=== PATIENT | male | born 1960 | race Caucasian/White ===

== ENCOUNTER 2023-07-08 16:20 | Observation (INO) | payer OTHER, SELFPAY ==
[2023-07-08] VITALS (14 sets, daily range): BP systolic 125–176; BP diastolic 70–106; PULSE 86–102; RESP 14–23; TEMP 36.2–36.7; O2SAT 95–97; BMI 38.5
--- NOTE | 2023-07-08 16:53 | DI.RAD.S_ITS ---
PROCEDURE: XR CHEST 1V INDICATIONS: chest pain TECHNIQUE: One view of the chest was acquired. COMPARISON: None. FINDINGS: Surgical changes and devices: None. Lungs and pleura: Lungs are clear. No pleural effusions or pneumothorax. Mediastinum: Mediastinal contours appear normal. Heart size is normal. Bones and chest wall: No suspicious bony lesions. Overlying soft tissues appear unremarkable. IMPRESSION: No acute radiographic abnormality on this single view. Dictated by: Sravan Archibald M.D. on 07/08/2023 at 17:02 Approved by: Sravan Archibald M.D. on 07/08/2023 at 17:03
--- NOTE | 2023-07-08 16:54 | DI.CT.S_ITS ---
PROCEDURE: CT ANGIO HEAD AND NECK INDICATIONS: Please evaluate for stroke TECHNIQUE: After the administration of intravenous contrast, 1 mm thick sections acquired from the aortic arch through the [place]. 3-dimensional vrqsuvt-uzxgkccxv-skzcvskdvj (MIP) and/or volume rendering reformats were acquired of the central intracranial vasculature and neck separately. For radiation dose reduction, the following was used: automated exposure control, adjustment of mA and/or kV according to patient size. COMPARISON: [facility], CR, XR CHEST 1V, 07/08/2023, 16:49. [facility], CT, CT HEAD/BRAIN WO CON, 07/08/2023, 17:00. FINDINGS: Image quality: Diagnostic. BRAIN: CSF spaces: Ventricles are normal in size and shape. Basal cisterns are patent. No extra-axial fluid collections. Brain: As previously demonstrated, general low-density can be seen involving the right posterior cerebral hemisphere. Skull and face: Calvarium and facial bones appear intact, without suspicious lesions. Orbits appear normal. Sinuses: Mucous retention cysts can be seen within the left maxillary sinus. Sinuses and mastoids are otherwise clear. HEAD CT ANGIOGRAPHY: Anterior circulation: Intracranial internal carotid arteries are normal in size and flow. The flow within the paired anterior cerebral arteries is normal and symmetric. The flow within the middle cerebral arteries is normal and symmetric. The anterior communicating artery is seen. No aneurysms are seen. Posterior circulation: Visualized portions of the vertebral arteries demonstrate normal caliber, and join to form a normal appearing basilar artery. There is a prominent left posterior communicating artery seen, with an accompanying diminutive left P1 segment. This is attributed to a type origin of the right posterior cerebral artery, which is considered to be a normal developmental variant of typically no clinical consequence. The flow within the posterior cerebral arteries is normal and symmetric. No aneurysms are seen. NECK CT ANGIOGRAPHY: Carotid system: The great vessels demonstrate a conventional anatomy as they arise from the aortic arch. The origins of the common carotid arteries appear patent. The common carotid arteries demonstrate normal caliber and courses. The bifurcation regions are both widely patent. The internal carotid arteries demonstrate normal calibers and courses. Posterior circulation: The origins of the vertebral arteries both appear widely patent. The more superior extracranial portions of both vertebral arteries also demonstrate normal courses and calibers. The left vertebral artery is dominant to the right. Soft tissues: Visualized neck soft tissues demonstrate no suspicious abnormalities. Bones: No suspicious bony lesions. Visualized cervical spine appears normally aligned. Moderate cervical spine degenerative change can be seen. IMPRESSION: No significant intracranial arterial abnormality is seen. Within the arteries of the neck, no hemodynamically significant stenosis can be seen. If it would be helpful for clinical management decision making, please consider a follow-up brain MRI for further evaluation (assuming that there is no contraindication). Any quantitative measurements of stenosis were performed using NASCET criteria. Dictated by: Vlad Omer M.D. on 07/08/2023 at 16:34 Approved by: Vlad Omer M.D. on 07/08/2023 at 16:36
--- NOTE | 2023-07-08 16:54 | DI.CT.S_ITS ---
PROCEDURE: CT HEAD/BRAIN WO CON INDICATIONS: R/O stroke TECHNIQUE: Noncontrast 4.5 mm thick angled axial sections acquired from the foramen magnum to the vertex, with coronal and sagittal reformats. For radiation dose reduction, the following was used: automated exposure control, adjustment of mA and/or kV according to patient size. COMPARISON: None. FINDINGS: Image quality: Good CSF spaces: Basal cisterns are patent. Lateral ventricles are symmetric. Volume: Vascular calcifications. Periventricular white matter disease is commonly seen with chronic microangiopathy. Volume loss is present. These findings are [id number] Brain: Right parietal occipital hypoattenuation involving the white and [place]oz matter. No acute hemorrhage. Craniofacial structures: Left paranasal sinus mucous retention cysts. IMPRESSION: Suspected late acute to subacute infarct in the right parietal occipital region. Consider MRI to further evaluate. Dictated by: Sravan Archibald M.D. on 07/08/2023 at 17:13 Approved by: Sravan Archibald M.D. on 07/08/2023 at 17:15
[2023-07-08 17:08] LABS: Add Manual Diff / Slide Review NO; Basophils Absolute Auto 100 /uL (0-100); Basophils Percent Auto 0.4 % (0-2); Eosinophils Absolute Auto 200 /uL (0-450); Eosinophils Percent Auto 1.3 % (2-4); Hematocrit 46.1 % (41-53); Hemoglobin 15.8 g/dL (13.5-17.5); Lymphocytes Absolute Auto 2000 /uL (1100-4500); Lymphocytes Percent Auto 12.9 % (25-40); Mean Corpuscular HGB Conc 34.3 % (30-36); Mean Corpuscular Hemoglobin 29.2 PG (26-34); Mean Corpuscular Volume 85.2 fL (80-100); Monocytes Absolute Auto 1000 /uL (0-900); Monocytes Percent Auto 6.6 % (3-14); Neutrophils Absolute Auto 12500 /uL (1500-7000); Neutrophils Percent Auto 78.8 % (50-75); Platelet Count 264 X10^3/uL (150-400); Red Blood Cell Count 5.41 X10^6/uL (4.5-5.9); Red Cell Distribution Width 14.6 % (11.6-14.8); White Blood Cell Count 15.9 X10^3/uL (4.5-11.0)
[2023-07-08 17:16] LABS: Prothrombin Time 11.8 SECONDS (10.1-12.7)
[2023-07-08 17:18] LABS: PTT Partial Thromboplastin Tim 31 SECONDS (26-36)
[2023-07-08 17:24] LABS: Alanine Aminotransferase 30 IU/L (<50); Albumin 4.2 g/dL (3.5-5.0); Albumin Globulin Ratio 1.3 (1.0-2.8); Alkaline Phosphatase 55 U/L (38-126); Aspartate Aminotransferase 23 IU/L (17-59); BUN Creatinine Ratio 19.8 (6-22); Bilirubin Total 0.3 mg/dL (0.2-1.3); Blood Urea Nitrogen 18 mg/dL (9-20); Calcium 9.4 mg/dL (8.4-10.2); Carbon Dioxide 23 mmol/L (22-32); Chloride 105 mmol/L (98-107); Creatine Kinase 63 U/L (55-170); Estimated Glomerular Filt Rate > 60 mL/min (>60); Globulin 3.2 g/dL (1.7-4.1); Glucose 153 mg/dL (80-110); HEMOLYSIS 19 (0-50); Lipase 75 U/L (23-300); Magnesium 2.1 mg/dL (1.6-2.3); Sodium 138 mmol/L (137-145); Total Protein 7.4 g/dL (6.3-8.2)
[2023-07-08 17:35] LABS: Troponin I < 0.012 ng/mL (0.01-0.034)
--- NOTE | 2023-07-08 17:48 | DI.MRI.S_ITS ---
PROCEDURE: MR HEAD/BRAIN WO CON INDICATIONS: Intermittent extremities/face TECHNIQUE: Noncontrast axial T1 spin echo, axial T2 fast spin echo, sagittal and axial FLAIR, coronal T2 fast spin echo, axial gradient echo, axial diffusion and ADC through the brain. COMPARISON: [facility], CT, CT ANGIO HEAD AND NECK, 07/08/2023, 17:00. [facility], CT, CT HEAD/BRAIN WO CON, 07/08/2023, 17:00. FINDINGS: Image quality: Excellent. CSF Spaces: Basal cisterns are patent. No extra-axial fluid collections. Ventricles are normal in size and shape. Brain: There is a large region of cortical and subcortical restricted diffusion in the right posterior parietal, posterior temporal, and occipital lobes with corresponding T2 hyperintensity and cortical edema consistent with a subacute infarct. There are associated curvilinear areas of GRE susceptibility along the cortex within this region as well as associated T1 hyperintensity. The findings are consistent with hemorrhagic conversion and laminar necrosis. Multiple additional small punctate subcortical foci of restricted diffusion and T2 hyperintensity are demonstrated within the right frontal, parietal, and temporal lobes also consistent with small subacute infarcts. No discrete mass or hematoma collection. There are also scattered bilateral foci of periventricular and subcortical T2 hyperintensity consistent with mild chronic white matter small vessel ischemic changes. No intracranial masses or hemorrhage. [place]/white matter interface is normal. Brainstem appears normal. Diffusion-weighted images demonstrate no acute ischemic insult. No chronic ischemic insults. Normal intravascular flow voids are present. Skull and face: Calvarium has normal marrow signal. Orbits appear normal. Sinuses: There is mucosal thickening in the left maxillary sinus. Mastoid air cells are clear. IMPRESSION: 1. Large cortical and subcortical subacute infarct involving the right posterior parietal, posterior temporal, and occipital lobes with associated cortical hemorrhagic conversion and laminar necrosis. 2. Additional small punctate subacute infarcts in the right frontal, parietal, and temporal lobes. Given the distribution within the anterior and posterior circulation, the findings suggest sequelae of right-sided embolic phenomenon. Findings discussed with Dr. Courtney on 08/07/2023 at 9:10 p.m.. Dictated by: Vaibhav Sow M.D. on 07/08/2023 at 21:05 Approved by: Vaibhav Sow M.D. on 07/08/2023 at 21:14
--- NOTE | 2023-07-08 18:14 | ED_ITS ---
HPI - Neuro Symptoms/Deficit General Chief Complaint: Neuro Symptoms/Deficit Stated Complaint: sent by PCP possible Stroke Time Seen by Provider: 07/08/23 18:03 Source: patient Mode of arrival: Ambulatory History of Present Illness HPI Narrative: 63-year-old male with history of smoking, hypertension, diabetes presents at the request of his primary care provider for evaluation of neurologic symptoms and concern for stroke. He states that he has been having some vision issues in his left eye off and on for at least a few days as well as episodes of trouble with coordination of his left arm. Denies any trauma or injury. He has no headache, fever or chills. He does not take blood thinners. He denies chest pain, shortness of breath or cough. He has no nausea, vomiting or diarrhea. On Anticoagulants: No (ASA81) Review of Systems Review of Systems Narrative: GENERAL: Denies chills, fatigue, malaise, fever, sweats. HEENT: See HPI RESPIRATORY: Denies dyspnea, cough, wheezing, hemoptysis, sputum. CARDIOVASCULAR: Denies chest pain, palpitations, orthopnea, edema, GASTROINTESTINAL: Denies nausea, vomiting, abdominal pain, diarrhea, constipation, melena. : Denies dysuria, frequency, incontinence, hematuria, urinary retention. MUSCULOSKELETAL: denies weakness, joint pain, or bony pain SKIN: Denies rash, skin lesions, or other NEUROLOGIC: See HPI n. PSYCHIATRIC: No concerning psychosocial issues. 12 point review of systems is negative except for those stated above Hematologic/Lymphatic On Anticoagulants: No (ASA81) Patient History Social History Smoking Status: Current every day smoker Smoking Status: Current every day smoker tobacco type: cigarettes alcohol intake frequency: holidays/special occasions only Substance Use Type: marijuana Exam Narrative Exam Narrative: GENERAL: [63] year old patient appears stated age. Well-developed patient, in mild distress. HEAD: Atraumatic. Normocephalic. EYES: Pupils equal round and reactive. Extraocular motions intact. No scleral icterus. No injection or drainage. ENT: Nose without bleeding, purulent drainage. Throat without erythema, tonsilla r hypertrophy or exudate. Airway patent. NECK: Trachea midline. Non tender CARDIOVASCULAR: Regular rate and rhythm without murmurs, gallops, or rubs. RESPIRATORY: Clear to auscultation. Breath sounds equal bilaterally. No wheezes, rales, or rhonchi. GASTROINTESTINAL: Abdomen soft, non-tender, nondistended. EXTREMITIES: No edema or joint tenderness. BACK: Nontender without deformity or crepitance. No flank tenderness. NEURO: AOx3. Cranial nerves 2-12 grossly intact SKIN: No rash or erythema of visible areas Initial Vital Signs Initial Vital Signs: Vital Signs Temperature 98.1 F 07/08/23 16:26 Pulse Rate 102 H 07/08/23 16:26 Respiratory Rate 17 07/08/23 16:26 Blood Pressure 166/88 H 07/08/23 16:26 Pulse Oximetry 96 07/08/23 16:26 Oxygen Delivery Method Room Air 07/08/23 16:26 Scores NIH Stroke Scale Level of Conciousness: Alert, keenly responsive Ask month/age: Answers both questions correctly. Open/close eyes, close hand: Performs both tasks correctly Best gaze horizontal: Normal Visual tabor: No visual loss Facial palsy: Normal symetrical movement Left arm drift: No drift for full 10 sec Right arm drift: No drift for full 10 sec Left leg drift: No drift for full 5 sec Right leg drift: No drift for full 5 sec Limb ataxia: Present in one limb Sensory on face/arms/legs: Normal, no sensory loss Best language: No aphasia, normal Dysarthria: Normal Extinction or inattention: No abnormality Total NIH Stroke scale score: 1 Course Orders Ordered: ED Orders 07/08/23 16:52 Complete Blood Count AUTO DIFF Stat Comprehensive Metabolic Panel Stat Lipase Stat Magnesium Stat PTT Partial Thromboplastin [place] Stat Prothrombin Time INR Stat Troponin & CK Cardiac Panel Stat 07/08/23 16:53 XR chest 1V Stat EKG-12 Lead Stat 07/08/23 16:54 CT angio head and neck Stat CT head/brain wo con Stat 07/08/23 17:48 MR stroke Stat Discontinued Medications Aspirin (Aspirin 81 Mg Chew Tab) 324 mg PO NOW ONE Stop: 07/08/23 16:54 Last Admin: 07/08/23 18:34 Dose: Not Given Documented By: JADE Aspirin (Aspirin 81 Mg Chew Tab) 324 mg PO NOW ONE Stop: 07/08/23 18:31 Aspirin (Aspirin 81 Mg Chew Tab) 324 mg PO NOW ONE Stop: 07/08/23 19:27 Last Admin: 07/08/23 19:27 Dose: 324 mg Documented By: ISABELA Vital Signs Vital signs: Vital Signs - 8 hr 07/08/23 16:26 07/08/23 16:28 07/08/23 16:30 Temperature 98.1 F Pulse Rate 102 H 100 H Respiratory Rate 17 19 Blood Pressure 166/88 H 156/86 H Pulse Oximetry 96 96 Oxygen Delivery Method Room Air 07/08/23 16:30 07/08/23 17:00 07/08/23 17:00 Temperature Pulse Rate 100 H 100 H Respiratory Rate 19 23 Blood Pressure 150/106 H Pulse Oximetry 96 96 Oxygen Delivery Method 07/08/23 17:13 07/08/23 17:13 07/08/23 17:30 Temperature Pulse Rate 91 H 86 Respiratory Rate 16 20 Blood Pressure 155/86 H Pulse Oximetry 95 95 Oxygen Delivery Method 07/08/23 17:31 07/08/23 17:31 07/08/23 18:00 Temperature Pulse Rate 86 Respiratory Rate 19 Blood Pressure 153/72 H 166/88 H Pulse Oximetry 95 Oxygen Delivery Method 07/08/23 18:00 07/08/23 18:30 07/08/23 18:30 Temperature Pulse Rate 86 91 H Respiratory Rate 14 18 Blood Pressure 176/94 H Pulse Oximetry 96 96 Oxygen Delivery Method MDM - Neuro Symptoms/Deficit Lab Data 07/08/23 16:52 07/08/23 16:52 Labs: Lab Results 07/08/23 07/08/23 07/08/23 Range/Units 16:52 16:52 16:52 WBC 15.9 H (4.5-11.0) X10^3/uL RBC 5.41 (4.5-5.9) X10^6/uL Hgb 15.8 (13.5-17.5) g/dL Hct 46.1 (41-53) % MCV 85.2 (80-100) fL MCH 29.2 (26-34) PG MCHC 34.3 (30-36) % RDW 14.6 (11.6-14.8) % Plt Count 264 (150-400) X10^3/uL Neut % (Auto) 78.8 H (50-75) % Lymph % (Auto) 12.9 L (25-40) % [place] % (Auto) 6.6 (3-14) % Eos % (Auto) 1.3 L (2-4) % Baso % (Auto) 0.4 (0-2) % Neut # (Auto) 62451 H (2375-1311) /uL Lymph # (Auto) 2000 (7997-5386) /uL [place] # (Auto) 1000 H (0-900) /uL Eos # (Auto) 200 (0-450) /uL Baso # (Auto) 100 (0-100) /uL PT 11.8 (10.1-12.7) SECONDS INR 1.0 (0.9-1.3) APTT 31 (26-36) SECONDS Sodium 138 (137-145) mmol/L Potassium 4.0 (3.4-5.1) mmol/L Chloride 105 (98-107) mmol/L Carbon Dioxide 23 (22-32) mmol/L BUN 18 (9-20) mg/dL Creatinine 0.91 (0.66-1.25) mg/dL Estimated GFR > 60 (>60) mL/min BUN/Creatinine Ratio 19.8 (6-22) Glucose 153 H (80-110) mg/dL Calcium 9.4 (8.4-10.2) mg/dL Magnesium 2.1 (1.6-2.3) mg/dL Total Bilirubin 0.3 (0.2-1.3) mg/dL AST 23 (17-59) IU/L ALT 30 (<50) IU/L Alkaline Phosphatase 55 (38-126) U/L Total Creatine Kinase 63 (55-170) U/L Troponin I < 0.012 (0.01-0.034) ng/mL Total Protein 7.4 (6.3-8.2) g/dL Albumin 4.2 (3.5-5.0) g/dL Globulin 3.2 (1.7-4.1) g/dL Albumin/Globulin Ratio 1.3 (1.0-2.8) Lipase 75 (23-300) U/L MDM Narrative Medical decision making narrative: [63] year old patient presents with neurologic symptoms including occasional visual issues, some dizziness and left arm trouble, symptoms off and on for least 1 week Multiple etiologies for patient's symptoms considered including, but not limited to: [Stroke versus TIA versus other] Prior Charts reviewed in our EMR Primary Historian: patient Labs reviewed and interpreted by myself: Leukocytosis of 15.9 with relative left shift of unknown importance, no signs of anemia, electrolytes within normal limits Imaging reviewed: Noncontrasted CT of the head with a suspected late acute to subacute infarct in the right parietal occipital region, CTA without significant intracranial arterial abnormality Consultations: call to hospitalist (Marcelo), happy to accept Patient with stroke, last known normal at least a few days ago. NOT TPA candidate, no evidence of LVO. Requires hospitalization for completion of stroke work up including MRI, echo, maximizing meds, various consults as needed by hospitalist Discharge Plan Departure Patient Disposition: Admitted As Inpatient Clinical Impression: Cerebrovascular accident
--- NOTE | 2023-07-08 18:34 | PC.NURSE ---
ED Dr Canales gave Verbal orders, Dr Redd used in error, all order prior to [address] Antonio Canales
--- NOTE | 2023-07-08 19:21 | P.HP_ITS ---
History of Present Illness History of Present Illness Date Patient Seen: 07/08/23 Time Patient Seen: 19:21 Chief complaint: sent by PCP possible Stroke Narrative: The a 63-year-old male who presents with waxing and waning neurologic symptoms for several weeks. Included mental fuzziness, and intermittent clumsiness of his left hand. He has also had some visual changes including squiggly lines which his eye doctor thought might be ocular migraine. 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 He is very effective in successful at his job. Patient has a history of diabetes been working on weight loss. He also has hypertension and smokes cigarettes. Treated TIA or stroke. Yesterday he developed a very clumsy and numb arm which lasted for a short p eriod of time. This prompted a phone call and appointment with his primary care doctor. Upon presentation today they thought he had sent him to the ED. he was found on imaging to have a subacute right parietal stroke. He was outside of the window for acute thrombolytics. He denies recent headache. He takes aspirin 81 mg a day as well as amlodipine and losartan. [facility] Social History Smoking Status: Current every day smoker Review of Systems Review of Systems Narrative: All else reviewed and otherwise unremarkable except as noted on history and physical. Exam Vital Signs (past 8 hours): - 07/08/23 16:26 07/08/23 16:28 07/08/23 16:30 Temperature 98.1 F Pulse Rate 102 H 100 H Respiratory Rate 17 19 Blood Pressure 166/88 H 156/86 H Pulse Oximetry 96 96 Oxygen Delivery Method Room Air 07/08/23 16:30 07/08/23 17:00 07/08/23 17:00 Temperature Pulse Rate 100 H 100 H Respiratory Rate 19 23 Blood Pressure 150/106 H Pulse Oximetry 96 96 Oxygen Delivery Method 07/08/23 17:13 07/08/23 17:13 07/08/23 17:30 Temperature Pulse Rate 91 H 86 Respiratory Rate 16 20 Blood Pressure 155/86 H Pulse Oximetry 95 95 Oxygen Delivery Method 07/08/23 17:31 07/08/23 17:31 07/08/23 18:00 Temperature Pulse Rate 86 Respiratory Rate 19 Blood Pressure 153/72 H 166/88 H Pulse Oximetry 95 Oxygen Delivery Method 07/08/23 18:00 07/08/23 18:30 07/08/23 18:30 Temperature Pulse Rate 86 91 H Respiratory Rate 14 18 Blood Pressure 176/94 H Pulse Oximetry 96 96 Oxygen Delivery Method Oxygen Delivery Method Room Air Narrative Exam Narrative: The patient is awake and in NAD. Normal speech and mentation. Normal judgement, and calm affect. Head is atraumatic and EOMI. Anicteric sclera. Oropharynx is moist. Neck is supple and trachea is midline. Lungs are CTA, with normal rate and effort. Heart is RRR, without murmur, gallop, or rub. Abdomen is soft, NT and ND. Extremities are free of edema. Good arm pulses. Good leg pulses. Skin is free of rash or lesions. Joints are free of swelling or deformity. Back with normal ROM. Neurologically his cranial nerves are intact. He has no discernible facial droop. His speech appears to be normal and his thought content appears to be sharp. The patient's cranial nerves appear to be intact. He does have very mild weakness of dorsiflexion of his left foot but otherwise his motor strength is fairly symmetric in arms and legs on both sides. Objective ECG Impression: Normal sinus rhythm Imaging CT scan - head: Radiologist's impression: IMPRESSION:? No significant intracranial arterial abnormality is seen.? ? Within the arteries of the neck, no hemodynamically significant stenosis can be seen. ? If it would be helpful for clinical management decision making, please consider a follow-up brain MRI for further evaluation (assuming that there is no contraindication).? IMPRESSION:? Suspected late acute to subacute infarct in the right parietal occipital region.? Consider MRI to further evaluate.? Labs 07/08/23 16:52 07/08/23 16:52 Labs: Laboratory Results - last 24 hr 07/08/23 07/08/23 07/08/23 16:52 16:52 16:52 WBC 15.9 H RBC 5.41 Hgb 15.8 Hct 46.1 MCV 85.2 MCH 29.2 MCHC 34.3 RDW 14.6 Plt Count 264 Neut % (Auto) 78.8 H Lymph % (Auto) 12.[address] [place] % (Auto) 6.6 Eos % (Auto) 1.3 L Baso % (Auto) 0.4 Neut # (Auto) 39503 H Lymph # (Auto) 2000 [place] # (Auto) 1000 H Eos # (Auto) 200 Baso # (Auto) 100 PT 11.8 INR 1.0 APTT 31 Sodium 138 Potassium 4.0 Chloride 105 Carbon Dioxide 23 BUN 18 Creatinine 0.91 Estimated GFR > 60 BUN/Creatinine Ratio 19.8 Glucose 153 H Calcium 9.4 Magnesium 2.1 Total Bilirubin 0.3 AST 23 ALT 30 Alkaline Phosphatase 55 Total Creatine Kinase 63 Troponin I < 0.012 Total Protein 7.4 Albumin 4.2 Globulin 3.2 Albumin/Globulin Ratio 1.3 Lipase 75 Assessment & Plan Assessment & Plan narrative: 1. Subacute right parieto-occipital stroke, present on admission and active. 2. Insulin-dependent diabetes mellitus 2,present on admission and active. 3. Tobacco dependence,present on admission and active. 4. Obesity,present on admission and active. 5. Hypertension,present on admission and active. Plan: -monitor glucose with correctional lispro. -dual antiplatelet therapy with Plavix 75 daily and baby aspirin, add atorvastatin 40 -MRI brain -cardiac echo -PT and OT assessments Time Spent With Patient Time with patient: 30 to 49 minutes with 50% spent counseling/coordinating care
[2023-07-08] MEDS: ASPIRIN 81 MG CHEW TAB 324 MG PO (19:27)
[2023-07-08 20:06] LABS: Cholesterol 211 mg/dL (140-199); HDL Cholesterol 25 mg/dL (40-60); LDL Cholesterol Calculated 111 mg/dL (<100); Triglycerides 373 mg/dL (35-150)
--- NOTE | 2023-07-08 22:02 | ED.NEUROSD ---
HPI - Neuro Symptoms/Deficit General Chief Complaint: Neuro Symptoms/Deficit Stated Complaint: sent by PCP possible Stroke Time Seen by Provider: 07/08/23 18:03 Source: patient Mode of arrival: Ambulatory History of Present Illness On Anticoagulants: No (ASA81) Related Data Home Medications Medication Instructions Recorded Confirmed amlodipine 10 mg tablet 10 mg PO DAILY 07/08/23 07/08/23 testosterone cypionate 200 mg/mL 200 mg IM Q2W 07/08/23 07/08/23 intramuscular oil valsartan 160 mg tablet 160 mg PO DAILY 07/08/23 07/08/23 Review of Systems Hematologic/Lymphatic On Anticoagulants: No (ASA81) Patient History Social History Smoking Status: Current every day smoker Smoking Status: Current every day smoker tobacco type: cigarettes alcohol intake frequency: holidays/special occasions only Substance Use Type: marijuana Exam Initial Vital Signs Initial Vital Signs: Vital Signs Temperature 98.1 F 07/08/23 16:26 Pulse Rate 102 H 07/08/23 16:26 Respiratory Rate 17 07/08/23 16:26 Blood Pressure 166/88 H 07/08/23 16:26 Pulse Oximetry 96 07/08/23 16:26 Oxygen Delivery Method Room Air 07/08/23 16:26 Course Orders Ordered: ED Orders 07/08/23 16:52 Complete Blood Count AUTO DIFF Stat Comprehensive Metabolic Panel Stat Lipase Stat Lipid Panel Routine Magnesium Stat PTT Partial Thromboplastin [place] Stat Prothrombin Time INR Stat Troponin & CK Cardiac Panel Stat 07/08/23 16:53 XR chest 1V Stat EKG-12 Lead Stat 07/08/23 16:54 CT angio head and neck Stat CT head/brain wo con Stat 07/08/23 17:48 MR head/brain wo con Stat 07/08/23 19:30 Education, smoking cessation ONGOING 07/09/23 06:00 Basic Metabolic Panel DAILY NT-proBNP (BNP-Adult 18+) DAILY 07/10/23 06:00 Basic Metabolic Panel DAILY NT-proBNP (BNP-Adult 18+) DAILY Acetaminophen (Acetaminophen 325 Mg Tablet) 650 mg PO Q6H PRN PRN Reason: Fever/Mild Pain (1-3) Calcium Carbonate (Calcium Carbonate 500 Mg Tab) 1,000 mg PO Q4HR PRN PRN Reason: Dyspepsia Heparin Sodium (Porcine) (Heparin 5,000 Unit/Ml Vial) 5,000 unit SUBCUT BID EMIL Naloxone HCl (Naloxone 0.4 Mg/Ml Vial) 0.2 mg IV Q2MIN PRN PRN Reason: Opiate Reversal Discontinued Medications Aspirin (Aspirin 81 Mg Chew Tab) 324 mg PO NOW ONE Stop: 07/08/23 16:54 Last Admin: 07/08/23 18:34 Dose: Not Given Documented By: DKB Aspirin (Aspirin 81 Mg Chew Tab) 324 mg PO NOW ONE Stop: 07/08/23 18:31 Last Admin: 07/08/23 20:54 Dose: Not Given Documented By: KLS Aspirin (Aspirin 81 Mg Chew Tab) 324 mg PO NOW ONE Stop: 07/08/23 19:27 Last Admin: 07/08/23 19:27 Dose: 324 mg Documented By: BS Atorvastatin Calcium (Atorvastatin 20 Mg Tablet) 40 mg PO NOW ONE Stop: 07/08/23 19:34 Clopidogrel Bisulfate (Clopidogrel 75 Mg Tablet) 75 mg PO NOW ONE Stop: 07/08/23 19:34 Vital Signs Vital signs: Vital Signs - 8 hr 07/08/23 16:26 07/08/23 16:28 07/08/23 16:30 Temperature 98.1 F Pulse Rate 102 H 100 H Respiratory Rate 17 19 Blood Pressure 166/88 H 156/86 H Pulse Oximetry 96 96 Oxygen Delivery Method Room Air 07/08/23 16:30 07/08/23 17:00 07/08/23 17:00 Temperature Pulse Rate 100 H 100 H Respiratory Rate 19 23 Blood Pressure 150/106 H Pulse Oximetry 96 96 Oxygen Delivery Method 07/08/23 17:13 07/08/23 17:13 07/08/23 17:30 Temperature Pulse Rate 91 H 86 Respiratory Rate 16 20 Blood Pressure 155/86 H Pulse Oximetry 95 95 Oxygen Delivery Method 07/08/23 17:31 07/08/23 17:31 07/08/23 18:00 Temperature Pulse Rate 86 Respiratory Rate 19 Blood Pressure 153/72 H 166/88 H Pulse Oximetry 95 Oxygen Delivery Method 07/08/23 18:00 07/08/23 18:30 07/08/23 18:30 Temperature Pulse Rate 86 91 H Respiratory Rate 14 18 Blood Pressure 176/94 H Pulse Oximetry 96 96 Oxygen Delivery Method 07/08/23 19:00 07/08/23 19:30 07/08/23 19:30 Temperature Pulse Rate 86 90 Respiratory Rate 20 21 Blood Pressure 158/93 H Pulse Oximetry 95 95 Oxygen Delivery Method MDM - Neuro Symptoms/Deficit Lab Data 07/08/23 16:52 07/08/23 16:52 Labs: Lab Results 07/08/23 07/08/23 07/08/23 Range/Units 16:52 16:52 16:52 WBC 15.9 H (4.5-11.0) X10^3/uL RBC 5.41 (4.5-5.9) X10^6/uL Hgb 15.8 (13.5-17.5) g/dL Hct 46.1 (41-53) % MCV 85.2 (80-100) fL MCH 29.2 (26-34) PG MCHC 34.3 (30-36) % RDW 14.6 (11.6-14.8) % Plt Count 264 (150-400) X10^3/uL Neut % (Auto) 78.8 H (50-75) % Lymph % (Auto) 12.9 L (25-40) % Traverse % (Auto) 6.6 (3-14) % Eos % (Auto) 1.3 L (2-4) % Baso % (Auto) 0.4 (0-2) % Neut # (Auto) 59276 H (8955-0765) /uL Lymph # (Auto) 2000 (5288-9124) /uL Traverse # (Auto) 1000 H (0-900) /uL Eos # (Auto) 200 (0-450) /uL Baso # (Auto) 100 (0-100) /uL PT 11.8 (10.1-12.7) SECONDS INR 1.0 (0.9-1.3) APTT 31 (26-36) SECONDS Sodium 138 (137-145) mmol/L Potassium 4.0 (3.4-5.1) mmol/L Chloride 105 (98-107) mmol/L Carbon Dioxide 23 (22-32) mmol/L BUN 18 (9-20) mg/dL Creatinine 0.91 (0.66-1.25) mg/dL Estimated GFR > 60 (>60) mL/min BUN/Creatinine Ratio 19.8 (6-22) Glucose 153 H (80-110) mg/dL Calcium 9.4 (8.4-10.2) mg/dL Magnesium 2.1 (1.6-2.3) mg/dL Total Bilirubin 0.3 (0.2-1.3) mg/dL AST 23 (17-59) IU/L ALT 30 (<50) IU/L Alkaline Phosphatase 55 (38-126) U/L Total Creatine Kinase 63 (55-170) U/L Troponin I < 0.012 (0.01-0.034) ng/mL Total Protein 7.4 (6.3-8.2) g/dL Albumin 4.2 (3.5-5.0) g/dL Globulin 3.2 (1.7-4.1) g/dL Albumin/Globulin Ratio 1.3 (1.0-2.8) Triglycerides (35-150) mg/dL Cholesterol (140-199) mg/dL LDL Cholesterol, Calc (<100) mg/dL HDL Cholesterol (40-60) mg/dL Lipase 75 (23-300) U/L 07/08/23 Range/Units 16:52 WBC (4.5-11.0) X10^3/uL RBC (4.5-5.9) X10^6/uL Hgb (13.5-17.5) g/dL Hct (41-53) % MCV (80-100) fL MCH (26-34) PG MCHC (30-36) % RDW (11.6-14.8) % Plt Count (150-400) X10^3/uL Neut % (Auto) (50-75) % Lymph % (Auto) (25-40) % Traverse % (Auto) (3-14) % Eos % (Auto) (2-4) % Baso % (Auto) (0-2) % Neut # (Auto) (3448-5510) /uL Lymph # (Auto) (8736-3365) /uL Traverse # (Auto) (0-900) /uL Eos # (Auto) (0-450) /uL Baso # (Auto) (0-100) /uL PT (10.1-12.7) SECONDS INR (0.9-1.3) APTT (26-36) SECONDS Sodium (137-145) mmol/L Potassium (3.4-5.1) mmol/L Chloride (98-107) mmol/L Carbon Dioxide (22-32) mmol/L BUN (9-20) mg/dL Creatinine (0.66-1.25) mg/dL Estimated GFR (>60) mL/min BUN/Creatinine Ratio (6-22) Glucose (80-110) mg/dL Calcium (8.4-10.2) mg/dL Magnesium (1.6-2.3) mg/dL Total Bilirubin (0.2-1.3) mg/dL AST (17-59) IU/L ALT (<50) IU/L Alkaline Phosphatase (38-126) U/L Total Creatine Kinase (55-170) U/L Troponin I (0.01-0.034) ng/mL Total Protein (6.3-8.2) g/dL Albumin (3.5-5.0) g/dL Globulin (1.7-4.1) g/dL Albumin/Globulin Ratio (1.0-2.8) Triglycerides 373 H (35-150) mg/dL Cholesterol 211 H (140-199) mg/dL LDL Cholesterol, Calc 111 H (<100) mg/dL HDL Cholesterol 25 L (40-60) mg/dL Lipase (23-300) U/L Discharge Plan Departure Patient Disposition: Admitted As Inpatient Clinical Impression: Cerebrovascular accident
--- NOTE | 2023-07-08 22:04 | PM.CALLCOV.1 ---
Call Coverage Note Note Narrative of Care Provided: 1. Large cortical and subcortical subacute infarct involving the right posterior parietal, posterior temporal, and occipital lobes with associated cortical hemorrhagic conversion and laminar necrosis. ? 2. Additional small punctate subacute infarcts in the right frontal, parietal, and temporal lobes.? Given the distribution within the anterior and posterior circulation, the findings suggest sequelae of right-sided embolic phenomenon. ? Discussed with stroke neurology Dr Sanchez 10:13 pm PST to 11:08 pm PST Patient seen and updated about RIGHT sided punctate hemorrhages. Takes aspirin 81 mg po daily confirms compliance Start tele TTE with bubble. If bubble +, B/L Lower extremity venous duplex to eval for VTE A1C goal <6.5 LDL goal < [address] head non con in AM STOP plavix Increase daily baby aspirin to 325 mg po daily DISCHARGE with minimum 30 days of holter telemetry If any evidence of AFIB - Start anticoagulation GOAL BP< 130/80 BP LOG BID x 2 weeks and follow up with PCP
--- NOTE | 2023-07-08 22:58 | DI.ECHO.S_ITS ---
[facility]---------+ [facility] +---------+ : : [address] : : : : [id number] : : : : Phone: [phone]+ Echocardiogram Report + + :Name: FLORENCIA MESSINA Study Date: 07/09/2023 Height: 74 in : :[facility] ReadingLocation: Weight: 303 lb : : Gender: Male BSA: 2.6 m2 : :: 1960 Age: 63 yrs BP: 145/78 mmHg: :Reason For Study: CVA : :Ordering Physician: KATHY, : :NAKUL BREWSTER Performed By: Carrie Guevara : :Referring: NAKUL CHAVEZ MD : + + Interpretation Summary The left ventricle is normal in size and wall thickness. Left ventricular systolic function appears normal without focal wall motion abnormalities. The ejection fraction is estimated to be 55-60%. Diastolic parameters suggest probable normal left ventricular diastolic function and normal filling pressures. The right ventricle is mildly dilated. The right ventricular systolic function is normal. The left atrial size is normal. Right atrial size is normal. There is no Doppler evidence for an interatrial shunt. Injection of contrast documented no interatrial shunt. There is no significant valvular heart disease. The ascending aorta is mildly enlarged. Procedure: A two-dimensional transthoracic echocardiogram with color flow and Doppler was performed. The study quality was technically difficult. There is no prior echocardiogram noted for this patient. A saline contrast injection was performed to assess for cardiac shunting. The patient was in sinus rhythm with heart rates between 72-92 bpm during the exam. Left Ventricle: The left ventricle is normal in size and wall thickness. Left ventricular systolic function appears normal without focal wall motion abnormalities. The ejection fraction is estimated to be 55-60%. Diastolic parameters suggest probable normal left ventricular diastolic function and normal filling pressures. Right Ventricle: The right ventricle is mildly dilated. The right ventricular systolic function is normal. Atria: The left atrial size is normal. Right atrial size is normal. There is no Doppler evidence for an interatrial shunt. Injection of contrast documented no interatrial shunt. Mitral Valve: The mitral valve is normal in structure and function. There is trace mitral regurgitation. Aortic Valve: The aortic valve is not well visualized. There is no aortic valve stenosis. No aortic regurgitation is present. Tricuspid Valve: The tricuspid valve is normal in structure and function. There is trace tricuspid regurgitation. Pulmonic Valve: The pulmonic valve is not well visualized. There is no pulmonic valvular regurgitation. There is no significant valvular heart disease. Great Vessels: The aortic root is normal size. The ascending aorta is mildly enlarged. The inferior vena cava was not well visualized. Pericardium/ Pleura There is no pericardial effusion. There is no pleural effusion. MMode/2D Measurements & Calculations LVIDd: 4.7 cm LVOT diam: 2.3 cm LVIDs: 3.1 cm Ao root diam: 3.4 cm FS: 34.3 % asc Aorta Diam: 3.9 cm IVSd: 0.93 cm LVPWd: 1.00 cm LV moss. diameter/BSA (cm/m^2): 1.8 LV sys. diameter/BSA (cm/m^2): 1.2 LA A2 area: 13.6 cm2 RA long axis: 4.9 cm LA A4 area: 16.0 cm2 RA area: 11.1 cm2 LA length (vol): 4.6 cm RA vol: 21.4 ml LA vol: 40.1 ml RA : 8.3 ml/m2 LA vol index: 15.5 ml/m2 RVD1 (basal): 4.3 cm RVD2 (mid): 3.6 cm TAPSE: 2.2 cm Doppler Measurements & Calculations Ao V2 max: 112.7 cm/sec LVOT Max Mesfin: 113.5 cm/sec Ao V2 mean: 78.2 cm/sec LV V1 max P.2 mmHg Ao max P.1 mmHg LV V1 VTI: 21.3 cm Ao mean P.7 mmHg ANNAMARIA(I,D): 3.9 cm2 Ao V2 VTI: 22.9 cm ANNAMARIA(V,D): 4.2 cm2 sev ratio: 0.93 ANNAMARIA indexed to BSA (cm^2/m^2): 1.5 MV E max mesfin: 76.7 cm/sec PA V2 max: 84.5 cm/sec MV A max mesfin: 58.9 cm/sec PA V2 mean: 63.9 cm/sec MV E/A: 1.3 PA mean P.7 mmHg Med Peak E' Mesfin: 7.2 cm/sec PA pr(Accel): 41.3 mmHg E/E' med: 10.6 Lat Peak E' Mesfin: 13.8 cm/sec E/E' lat: 5.6 E/e' average: 8.1 MV dec time: 0.19 sec SV(LVOT): 88.2 ml Reading Physician:12:28 PM
--- NOTE | 2023-07-09 | DI.CT.S_ITS ---
PROCEDURE: CT HEAD/BRAIN WO CON INDICATIONS: interval study after bleeding noted on mri TECHNIQUE: Noncontrast 4.5 mm thick angled axial sections acquired from the foramen magnum to the vertex, with coronal and sagittal reformats. For radiation dose reduction, the following was used: automated exposure control, adjustment of mA and/or kV according to patient size. COMPARISON: [facility], CT, CT HEAD/BRAIN WO CON, 07/08/2023, 17:00. [facility], MR, MR HEAD/BRAIN WO CON, 07/08/2023, 20:26. FINDINGS: Image quality: Excellent. CSF spaces: Basal cisterns are patent. No extra-axial fluid collections. The ventricles are symmetric in size and shape. Brain: No significant change. Again noted is a subacute right parietal occipital infarct. There is no obvious hemorrhage noted on CT, consistent with minimal petechial hemorrhage identified on MRI. There is cytotoxic edema with sulcal effacement. There is no significant mass effect or shift. There is cerebral volume loss for age, with resultant ventricular and sulcal prominence. There are periventricular and deep white matter chronic small vessel ischemic changes. There is intracranial internal carotid artery atherosclerosis. Skull and face: Calvarium and visualized facial bones appear intact, without suspicious lesions. Sinuses: Visualized sinuses and mastoids are clear. IMPRESSION: 1. MRI findings are consistent with minimal petechial hemorrhage, not visualized on CT. Unchanged findings of subacute right parieto-occipital infarct. Dictated by: Montrell Oh M.D. on 07/09/2023 at 7:59 Approved by: Montrell Oh M.D. on 07/09/2023 at 8:01
[2023-07-09] MEDS: ATORVASTATIN 20 MG TABLET 40 MG PO (00:56)
[2023-07-09] MEDS: CLOPIDOGREL 75 MG TABLET PO (00:56)
[2023-07-09 03:42] VITALS: BP 145/78; PULSE 85; RESP 20; TEMP 36.6; O2SAT 97
[2023-07-09 04:21] LABS: BUN Creatinine Ratio 20.2 (6-22); Blood Urea Nitrogen 20 mg/dL (9-20); Calcium 9.2 mg/dL (8.4-10.2); Carbon Dioxide 23 mmol/L (22-32); Chloride 104 mmol/L (98-107); Estimated Glomerular Filt Rate > 60 mL/min (>60); Glucose 189 mg/dL (80-110); HEMOLYSIS < 15 (0-50); Sodium 138 mmol/L (137-145)
[2023-07-09 04:30] LABS: NT-proBNP (BNP-Adult 18+) 38 pg/mL (<125)
[2023-07-09 08:00] VITALS: BP 149/88; PULSE 86; RESP 18; TEMP 36.9; O2SAT 97
[2023-07-09] MEDS: ASPIRIN EC 325 MG TABLET PO (08:58)
[2023-07-09] MEDS: AMLODIPINE 5 MG TABLET 10 MG PO (10:40)
[2023-07-09] MEDS: VALSARTAN 80 MG TABLET 160 MG PO (10:41)
[2023-07-09 10:50] LABS: Hemoglobin A1C% w Est Avg Glu 7.5 % (4.0-6.0)
[2023-07-09 10:57] LABS: Add Manual Diff / Slide Review NO; Basophils Absolute Auto 100 /uL (0-100); Basophils Percent Auto 0.5 % (0-2); Eosinophils Absolute Auto 200 /uL (0-450); Eosinophils Percent Auto 1.5 % (2-4); Hematocrit 46.7 % (41-53); Hemoglobin 15.7 g/dL (13.5-17.5); Lymphocytes Absolute Auto 1400 /uL (1100-4500); Lymphocytes Percent Auto 11.3 % (25-40); Mean Corpuscular HGB Conc 33.7 % (30-36); Mean Corpuscular Hemoglobin 29.1 PG (26-34); Mean Corpuscular Volume 86.5 fL (80-100); Monocytes Absolute Auto 800 /uL (0-900); Monocytes Percent Auto 6.1 % (3-14); Neutrophils Absolute Auto 10300 /uL (1500-7000); Neutrophils Percent Auto 80.6 % (50-75); Platelet Count 261 X10^3/uL (150-400); White Blood Cell Count 12.8 X10^3/uL (4.5-11.0)
--- NOTE | 2023-07-09 11:47 | OT.IP.EVAL ---
Current Diagnoses Cerebral infarction, unspecified (07/08/23) Occupational Therapy Inpatient Evaluation/Re-Eval M1 PT/OT-IP Prior Functional Status Start: 07/09/23 12:38 Freq: NEEDED Status: Active Protocol: Document 07/09/23 10:32 [facility] (Rec: 07/09/23 13:07 [facility] [id number]) Medical Review Prior Functional Status Communication Independent Mobility and Gait Pt does not use a device to walk with. Activities of Daily Living and IADL's Pt able to do all his ADLs and IADL on his own but lately having difficulty threading his belt through his pants, difficulty typing with his left hand on the keyboard at work. Pt's states has had to be much more careful driving to and from work lately as well. Prior Functional Level (Other details) Pt states for the past year has taken off work to help assist his 's family and just recently returned to work . Pt recently notes that his left hand is more clumsy and not able to reach for items appropriately at times. Social History Household Members spouse Living Arrangements House Number of Floors (Floors) 3 or More Floors Number of Stairs To Enter/Railing? 5-6 steps with bilateral rails to the main level where the bathroom is and another 5-6 steps to the kitchen with bilateral rails. Home Environment High Toilet,Walk in Shower Additional Social History Comment Pt did not use any devices prior. M2 OT-IP Current Condition Start: 07/09/23 12:38 Freq: Status: Active Protocol: Document 07/09/23 10:32 [facility] (Rec: 07/09/23 13:07 [facility] [id number]) Occupational Therapy Current Condition Current Condition Evaluation Date 07/09/23 Treatment Diagnosis Subacute Right parieto- occipital infarct Diagnosis Onset Date 07/08/23 M3 OT- IP Subjective and Pain Start: 07/09/23 12:38 Freq: Status: Active Protocol: Document 07/09/23 10:32 [facility] (Rec: 07/09/23 13:07 [facility] [id number]) OT- Subjective Occupational Therapy Visit Type Type Initial Evaluation Visit Start Time 10:32 Visit Stop Time 11:47 Total Visit Minutes 75 Occupational Therapy Visit Comments Patient Comments Pt agreed to work with OT , pt 's present in the room. Patient/Caregiver Goals To go home. OT Pain Assessment Pain When Pain Assessed At Rest Pain Present Pain Present Denied Pain M4 OT- IP ADL's Start: 07/09/23 12:38 Freq: Status: Active Protocol: Document 07/09/23 10:32 [facility] (Rec: 07/09/23 13:07 [facility] [id number]) OT [id number] Comments OT Self-Feeding Comments Not at meal time. Pt able to swallow his pills and drink water with no issues. OT ADL-Grooming Comments OT Grooming Comments Not performed. OT ADL-Oral Care Comments Oral Care Comments Not performed. OT ADL-Dressing General Eval Upper Body Dressing Ability Independent Lower Body Dressing Ability Independent Comments OT Dressing Comments Pt able to leif/doff his socks independently while sitting. OT ADL-Toileting Comments OT Toileting Comments Pt has been using the toilet on his own in the room. OT ADL-Bathing Comments OT Bathing Comments Not performed. M5 OT- IP IADL's Start: 07/09/23 12:38 Freq: Status: Active Protocol: Document 07/09/23 10:32 [facility] (Rec: 07/09/23 13:07 [facility] [id number]) OT-Instrumental Activities of Daily Living Home Safety Awareness Awareness of Need for Assistance at Home Good Awareness Ability to Problem Solve Emergency Able to Problem Solve Situations Money Management Money Management Comments At this time would be beneficial to provide supervision from the as pt having comprehension and working memory difficulties. Meal Preparation Meal Preparation Comments At this time would be beneficial to provide supervision from the as pt having comprehension and working memory difficulties. Computer Game Tester Computer Game Tester Comments At this time would be beneficial to provide supervision from the as pt having comprehension and working memory difficulties. Driving Driving Concerns Identified Regarding Safety M6 OT- IP Functional Cognition Start: 07/09/23 12:38 Freq: Status: Active Protocol: Document 07/09/23 10:32 [facility] (Rec: 07/09/23 13:07 [facility] [id number]) Cognitive Factors Limiting Selfcare Function Cognitive Ability Level of Alertness Alert Patient Orientation Name Attention Span Ability Capable of Focused Attention, Capable of Sustained Attention Ability to Follow Commands Able to Follow One Step Commands with Increased Time, Able to Follow One Step Commands with Repetition Memory Description Short Term Impaired,Working Impaired Executive Function Ability Unable to Remember Details Cognitive Tests SLUMS Pt scored 25/30 which implies mild neurocognitive deficits for his level of education and 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 Pt able to recall 4/5 objects after time passed, not able to draw the hands of the clock correctly after time given, and able to answer 3/4 questions right after paragraph read. Pt's states lately pt has been having difficulty with comprehension and understanding her at times. Cognitive Comments Cognitive Assessment Comments Pt scored 210 seconds with MAX vc for [place] Making Part B which implies severe deficits for visual attention, spatial reasoning, task switching, executive functioning, and mental flexibility. Pt at this time suggested pt not drive. Per [employer], a score of greater than 180 seconds, the person is more apt to get into a care accident. pt having difficulty with his working memory and comprehension per assessments. OT- Vision and Hearing OT- Hearing Assessment OT- Hearing Assessment WFL OT- Vision Assessment Visual Acuity WFL Visual Attentiveness WFL Occular Pursuits WFL Visual Convergence WFL Visual Byrne WFL Diplopia Absent M7 OT- IP Mobility and Balance Start: 07/09/23 12:38 Freq: Status: Active Protocol: Document 07/09/23 10:32 [facility] (Rec: 07/09/23 13:07 [facility] [id number]) OT-Transfer Assessment Sit to and From Stand Sit to and from Stand Independent Transfers Transfer Ability Independent Technique Transfer Destination Car Transfer Technique Stand Step Pivot Devices Transfer Assistive Devices None Comments Mobility Comments Pt independent in the room with no devices and able to get up and down from the floor on his own. Pt able to stand on each leg equally with good balance. OT- Balance Assessment Sitting Balance and Reactions Static Sitting Balance Ability Normal Dynamic Sitting Balance Ability Normal Standing Balance and Reactions Static Standing Balance Ability Normal Dynamic Standing Balance Ability Normal M8 OT- IP Objective Assessments Start: 07/09/23 12:38 Freq: Status: Active Protocol: Document 07/09/23 10:32 [facility] (Rec: 07/09/23 13:07 [facility] [id number]) OT Gross Range of Motion Upper Extremity Range of Motion Assessment Within Functional Limits OT Strength Upper Extremity Strength Assessment Within Functional Limits OT- Coordination Assessment Upper Extremity Finger to Nose Test Left UE Impaired Finger Tapping Test Left UE Impaired Comments Coordination Comments Slightly off for left hand and decreased smoothness and speed for left hand during finger tapping. Right hand 27 second approx 25 % for pt's age for 9 Hole peg hand test, left hand having more difficulty at 33sec which in under 10%. OT-Muscle Tone Assessment Muscle Tone WNL Yes OT Sensation Assessment Comments Summary Comments Decreased for left proprioception from elbow to distal and mild impairment for right hand. M9 OT- IP Assessment and Plan Start: 07/09/23 12:38 Freq: Status: Active Protocol: Document 07/09/23 10:32 [facility] (Rec: 07/09/23 13:07 [facility] [id number]) OT Summary Assessment and Plan Potential Rehabilitation Potential Good Analytic Complexity at Evaluation Moderate Summary OT Impairments Coordination,Functional Cognition,Dressing Progress Towards Goals Progressing Toward Goals Assessment Summary Pt MOD complexity and main barriers are decreased executive cognition of comprehension and working memory , decreases FMS and proprioception, kinesthesia, and smoothness of movement for left hand. Pt would greatly benefit from outpt WASTEWATER ENGINEER and outpt OT for cognitive and FMS needs. Goals Dressing Goal Independent Bathing Goal Independent OT-Other Goals Pt to be independent to do FMS exercises. Days to Meet Goals 1 Frequency of Treatment Frequency Of Treatment Once a Day Treatment Plan OT Treatment Plan ADL Training,Functional Cognition Training,Patient/ Family Education,Discharge Planning Discharge Recommendations OT Discharge Recommendations Home with Assistance Other Discharge Recommendations outpt WASTEWATER ENGINEER and OT Transportation Needs at Discharge Private Vehicle
[2023-07-09 12:00] VITALS: BP 118/79; PULSE 84; RESP 18; TEMP 36.4; O2SAT 98
--- NOTE | 2023-07-09 13:40 | PT.IIE ---
Current Diagnoses Cerebral infarction, unspecified (07/08/23) Physical Therapy Inpatient Evaluation/Re-Eval M1 PT/OT-IP Prior Functional Status Start: 07/09/23 12:38 Freq: NEEDED Status: Active Protocol: Document 07/09/23 14:17 AB (Rec: 07/09/23 14:29 AB [id number]) Medical Review Prior Functional Status Medical History Reviewed Yes Communication Independent Mobility and Gait Pt does not use a device to walk with. Activities of Daily Living and IADL's Pt able to do all his ADLs and IADL on his own but lately having difficulty threading his belt through his pants, difficulty typing with his left hand on the keyboard at work. Pt's states has had to be much more careful driving to and from work lately as well. Prior Functional Level (Other details) Pt states for the past year has taken off work to help assist his 's family and just recently returned to work . Pt recently has notes that vandana left hand is more clumsy and not able to reach her items appropriately at times. Social History Household Members spouse Living Arrangements House Number of Floors (Floors) 3 or More Floors Number of Stairs To Enter/Railing? 5-6 GEO with bilateral hand rails Home Environment High Toilet,Walk in Shower M1 PT/OT-IP Prior Functional Status Start: 07/09/23 14:17 Freq: NEEDED Status: Active Protocol: Document 07/09/23 14:17 AB (Rec: 07/09/23 14:29 AB [id number]) Medical Review Prior Functional Status Medical History Reviewed Yes Communication Independent Mobility and Gait Pt does not use a device to walk with. Activities of Daily Living and IADL's Pt able to do all his ADLs and IADL on his own but lately having difficulty threading his belt through his pants, difficulty typing with his left hand on the keyboard at work. Pt's states has had to be much more careful driving to and from work lately as well. Prior Functional Level (Other details) Pt states for the past year has taken off work to help assist his 's family and just recently returned to work . Pt recently has notes that vandana left hand is more clumsy and not able to reach her items appropriately at times. Social History Household Members spouse Living Arrangements House Number of Floors (Floors) 3 or More Floors Number of Stairs To Enter/Railing? 5-6 GEO with bilateral hand rails Home Environment High Toilet,Walk in Shower M2 PT-IP Current Condition Start: 07/09/23 14:17 Freq: NEEDED Status: Active Protocol: Document 07/09/23 14:17 AB (Rec: 07/09/23 14:29 AB [id number]) Physical Therapy Current Condition Current Condition Evaluation Date 07/09/23 Treatment Diagnosis CVA: subacute right parieto- occipital infarct Onset Date 07/08/23 M3 PT-IP Subjective Start: 07/09/23 14:17 Freq: NEEDED Status: Active Protocol: Document 07/09/23 14:17 AB (Rec: 07/09/23 14:29 AB [id number]) Subjective Physical Therapy Visit Type Type Initial Evaluation Visit Start Time 13:40 Visit Stop Time 13:53 Total Visit Minutes 13 Physical Therapy Visit Comments Patient Comments Pt presents seated in chair with family present. He is agreeable to PT eval, and denies having any symptoms. Therapy Pain Assessment Pain When Pain Assessed At Rest Pain Present Pain Present Denied Pain M4 PT-IP Mobility and Gait Start: 07/09/23 14:17 Freq: NEEDED Status: Active Protocol: Document 07/09/23 14:17 AB (Rec: 07/09/23 14:29 AB [id number]) PT-Bed Mobility Assessment Rolling Type of Rolling Bilateral Level of Assist Independent Supine to Sit Supine to Sit Independent Sit to Supine Sit to Supine Independent Scooting Scooting to Edge of Bed Independent Scooting Up and Down in Bed Independent PT-Transfer Assessment Sit to and From Stand Sit to and from Stand Independent Equipment Transfer Assistive Device Gait Belt Transfers Transfer Destination Bed,Chair Transfer Technique Stand Step Pivot Transfer Ability Level of Assist Independent Gait Assessment Gait Gait Assistance Required: Independent Distance (Feet) 250 Assistive Devices Assistive Device Gait Belt Gait Deviations General Gait Pattern Within Normal Limits Comments Gait Comments No gait abnormalities or instability noted. Stair Climbing Assessment Evaluation Level of Assist On Stairs Independent Devices Stair Climbing Assistive Devices Right Railing Technique/Endurance Stair Climbing Direction Ascend and Descend Stair Climbing Technique Step Over Step Number of Steps Climbed 9 Query Text: Stair Climbing Set # Repetitions (reps) 3 PT-Balance Assessment Sitting Balance and Reactions Static Sitting Balance Ability Normal Dynamic Sitting Balance Ability Normal Standing Balance and Reactions Static Standing Balance Ability Normal Dynamic Standing Balance Ability Normal Device Used none Functional Assessments Functional Tests 5 Times Sit to Stand 7.08 M5 PT-IP Objective Assessments Start: 07/09/23 14:17 Freq: NEEDED Status: Active Protocol: Document 07/09/23 14:17 AB (Rec: 07/09/23 14:29 AB [id number]) Orientation Orientation/Cognition Level of Alertness Alert Orientation Name,Age,Birthday,Month,Date, Year,Day of Week,Place, Situation Language Function Ability No Deficits Noted Safety Awareness Understands Safety Issues Memory Description No Deficits Noted Gross Range of Motion Upper Extremity ROM Assessment Within Functional Limits Lower Extremity ROM Assessment Within Functional Limits Strength Upper Extremity Strength Assessment Within Functional Limits Lower Extremity Strength Assessment Within Functional Limits M6 PT-IP Treatment Start: 07/09/23 14:17 Freq: NEEDED Status: Active Protocol: Document 07/09/23 14:17 AB (Rec: 07/09/23 14:29 AB [id number]) Physical Therapy Treatment Education Education Provided Safety Brace Education Patient,Caregiver M7 PT-IP Assessment and Plan Start: 07/09/23 14:17 Freq: NEEDED Status: Active Protocol: Document 07/09/23 14:17 AB (Rec: 07/09/23 14:29 AB [id number]) PT Summary Assessment and Plan Potential Rehabilitation Potential Excellent Status of Condition at Evaluation Stable Summary Assessment Summary Miguel Gooden is a 63 year old male patient presenting with subacute right parieto- occipital infarct. Today's PT evaluation revealed that the pt is functioning at a high level, as he is able to perform all mobility with independence and without significant deficits noted. The pt was able to ambulated 250ft independently, ascend/ descend 9 steps x 3 using 1 hand rail, and completed the 5x STS test in 7 seconds. Based on these findings, PT recommends discharge to home, and is being discharged from skilled PT. Goals Bed Mobility Goal Independent Transfer Goal Independent Gait Goal Independent Gait Distance 500 Other Goals Pt to be able to ambulate 500ft independently to show improving functional mobility to ambulate community distances. Days to Meet Goals 10 Frequency of Treatment Frequency Of Treatment Discharge Treatment Plan Other Recommendations and Next Treatment PT is being discharged from [facility] . Recommendations To Nursing Amount of Assist Needed Independent Discharge Recommendations PT Discharge Recommendations Home Transportation Needs at Discharge Private Vehicle
--- NOTE | 2023-07-09 14:06 | CM.DANOTE ---
WOODROW reviewed chart and consulted in team rounds. Met with pt at bedside to introduce self and role, and discuss d/c needs/concerns. Payor: [facility] PCP: Dr. Redd Pt is a 63 year-old male who presented to the ED on 07/08/23 for possible stroke. Pt reports that he has been having several weeks of neurological issues demonstrated by clumsy/numb arm, mental fogginess, and some visual changes. He was found to have a subacute right parietal stroke on CT imaging done in the ED. PT/OT evaluation recommends home with family care, OP OT/OP DIGITAL MARKETING ANALYST. Transport home will be in private vehicle. Per Dr. Peterson, possible d/c later this afternoon, pending DIGITAL MARKETING ANALYST evaluation. Will continue to monitor for further d/c needs. Discharge Planning/Care Management CM Discharge Assessment Start: 07/09/23 14:02 Freq: Status: Active Protocol: Document 07/09/23 14:03 DPL (Rec: 07/09/23 14:06 DPL [id number]) Discharge Planning Assessment Assigned Director University WOODROW Pizarro Advance Directives? No History Provided By Patient,Medical Record Has Patient been admitted in last 30 No days? Prior Living Arrangements House Household Members spouse Type of transporation used prior to Drives own vehicle admit Independent with ADL's Yes Is patient alert and oriented? Yes Comment N/A Caregiver for Another No Comment None Patient/Family Preference OP OT Therapy,OP DIGITAL MARKETING ANALYST Therapy Barriers to Discharge No Referrals Initiated None needed Whiteboard Updated in Patient Room with Yes name and ext. # of Director University Review Status In Process Please Provide Date Initial DC 07/09/23 Assessment Was Performed
--- NOTE | 2023-07-09 14:51 | ST.IPIE ---
Visit Care Team Role Provider Type Néstor Redd MD Primary Care Provider Non-Staff Specialty: Family Practice Address: [address], [place], [address] Email: Morris Courtney DO Emergency Provider Physician Referring Provider Specialty: Emergency Medicine Address: [address] [place] [address], [address] Email: [email or web address] Jayant Robertson MD Admit Provider Physician Attending Provider Specialty: Internal Medicine Address: [address] [place] [address] [address], [place], [address] Email: [email or web address] Current Diagnoses Cerebral infarction, unspecified (07/08/23) ST IP Initial Evaluation Report KILN LOADER Adult Cognitive Linguistic Eval Start: 07/09/23 14:22 Freq: Status: Active Protocol: Document 07/09/23 14:22 CG (Rec: 07/09/23 14:33 CG [id number]) Adult Cognitive Linguistic Evaluation Session Time Visit Start Time 01:50 Visit Stop Time 02:50 Total Visit Minutes 60 Visit Information Visit Number 1 Referral Referring Provider Pop Peterson Reason for Referral cognitive deficits 2/ CVA Setting Assessment Location Acute Care Visit Type Note Type Initial evaluation Patient Information Patient History Miguel Gooden is a 63-year-old male who presented to the ED at the receommendation of his PCP due to waxing and waning neurologic symptoms for several weeks. Included mental fuzziness, and intermittent clumsiness of his left hand. He has also had some visual changes including squiggly lines which his eye doctor thought might be ocular migraine. 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 He is very effective in successful at his job. Patient has a history of diabetes and has been been working on weight loss. He also has hypertension and smokes cigarettes. Yesterday he developed a very clumsy and numb arm which lasted for a short period of time. This prompted a phone call and appointment with his primary care doctor. Upon presentation to PCP, they sent him to the ED. He was found on imaging to have a subacute right parietal stroke. He was outside of the window for acute thrombolytics. He denies recent headache. He takes aspirin 81 mg a day as well as amlodipine and losartan. Pt has been evaluated by PT and OT. He scored a 25/30 on the SLUMS, and had significant difficulty completing the trailmaking task. During his evaluation with OT, he stated that he has recently been having more difficulty with tasks such as driving and has been driving more slowly in an attempt to compensate for deficits. He states he will stop and turn his full head both directions at a stop sign , likely in response to visual scanning deficits. He also recently had difficulty folding his pants and putting them on a size changer, including difficulty lining up the creases to hang it correctly. 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 He was alert, oriented, and cooperative. Able to give detail of how he performed with OT earlier in the day. He responded appropriately to all questions and informal assessment items. Mental Status Alert,Responsive,Cooperative Assessment Oral Motor Examination Completed No Results Oral motor structure and function appear grossly intact for speech/swallow Informal Assessment Receptive Language Normal Yes Expressive Language Normal Yes Pragmatic Language Normal Yes Speech Normal Yes Cognition Normal No Cognitive Impairment(s) Executive functioning,Problem solving,Thought organization Formal Assessment Results Informal assessment with portions of the MMSE. Pt was able to complete serial subtraction task accurately and efficiently and was also able to spell WORLD backwards accurately and efficiently. He was fully oriented and understood complex sentences in conversation without difficulty. He followed three -step direction independently accurately and without difficulty. Findings/Results Language Function Within functional limits Cognitive Function Mildly impaired Findings Based on pt interview and chart review, the pt presents with mild cognitive impairments characterized by difficulty following multi- step/sequencing directions and difficulty with visual awareness/scanning. His deficits do seem fairly mild based on ability to follow conversation, complete serial subtraction task, etc.; however, he demonstrated deficits with clock drawing task and memory tasks on the SLUMS per OT. Pt will likely benefit from outpatient speech -language therapy for a more in-depth standardized assessment of cognition (e.g. SCCAN) to specify areas of deficit, monitor progress, and develop strategies to reduce the impact of cognitive impairments 2/ CVA. KILN LOADER also provided extensive pt and caregiver training/ counseling regarding continued plan for care, prognosis, spontaneous recovery timeline, external strategies for memory, and the role of attention for memory. Discussed techniques to increase ability to attend to and encode multi-step information (e.g. writing down steps, repeating them aloud for robust encoding) and utilizing external aids for memory such as sticky notes, calendars, phone reminders, etc. Dicussed limitations and expectations of outpatient cognitive therapy. Pt is agreeable to pursuing outpatient cognitive therapy with an KILN LOADER. Cognitive Communication Deficits Self-awareness of Cognitive- Situational awareness ( Communication Deficits recognition of problem in context;in real time) Concomitant Factors Concomitant Factors Hemiplegia/hemiparesis,Other ( comment) Comment Visual/perceptual impairments Impact on Functioning Activity Limits/Particip.Rest. Mild: Interpersonal Interactions Education Mod: Employment Safety Risks Mod: Managing Medication Traveling Alone in Community Prognosis Prognosis Good Based on Cognitive status,Family support Plan of Care Speech-Language Treatment Yes Frequency daily while inpatient Patient/Caregiver Education Described results of evaluation,Patient expressed understanding of evaluation, Patient expressed agreement with goals and treatment plans ,Family/caregivers expressed understanding of evaluation, Family/caregivers expressed agreement with goals and treatment plan,Patient requires further education/ training Short Term Goals 1. Pt and family will benefit from education regarding external strategies for memory and attention. 2. Pt will complete visual scanning tasks with 90% accuracy independently. 3. Pt will utilize internal memory strategies to recall a list of 4-5 after a 3 minute delay with 100% accuracy. Discharge Recommendations Home
--- NOTE | 2023-07-09 15:05 | P.DS_ITS ---
History of Present Illness History of Present Illness Date Patient Seen: 07/08/23 Time Patient Seen: 19:21 Chief complaint: Sent by PCP possible Stroke Narrative: The a 63-year-old male who presents with waxing and waning neurologic symptoms for several weeks. Included mental fuzziness, and intermittent clumsiness of his left hand. He has also had some visual changes including squiggly lines which his eye doctor thought might be ocular migraine. 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 He is very effective in successful at his job. Patient has a history of diabetes been working on weight loss. He also has hypertension and smokes cigarettes. Treated TIA or stroke. Yesterday he developed a very clumsy and numb arm which lasted for a short p eriod of time. This prompted a phone call and appointment with his primary care doctor. Upon presentation today they thought he had sent him to the ED. he was found on imaging to have a subacute right parietal stroke. He was outside of the window for acute thrombolytics. He denies recent headache. He takes aspirin 81 mg a day as well as amlodipine and losartan. Discharge Providers Provider Date of admission: 07/08/23 19:45 Discharge Date: 07/09/23 Primary care physician: Néstor Redd MD Consults: 07/09/23 09:25 Consult to Occupational Therapy Evaluate & Treat Comment: Physician Instructions: Evaluate and treat Consult to Physical Therapy Evaluate & Treat Comment: Physician Instructions: Evaluate and Treat 07/09/23 11:50 Consult to Speech Therapy Evaluate & Treat Comment: Physician Instructions: Evaluate and treat Discharge provider: Pop Peterson DO Summary Hospital Course Discharge Diagnosis: 1. Subacute right parieto-occipital stroke with petechial hemorrhage, present on admission and active. 2. Insulin-dependent diabetes mellitus 2,present on admission and active. 3. Tobacco dependence,present on admission and active. 4. Obesity,present on admission and active. 5. Hypertension,present on admission and active. Hospital Course: Admitted for acute R-sided stroke. Had small petechial hemorrhage on MRI so teleneuro rec 325mg ASA only. No plavix. Started on high dose lipitor. A1c 7.5% so started on metformin and he will f/up with PCP for ongoing diabetes management. Continue on home BP meds. Will see outpatient PT/OT. Exam Vital Signs (past 8 hours): - 07/09/23 08:00 07/09/23 12:00 Temperature 98.4 F 97.6 F Pulse Rate 86 84 Respiratory Rate 18 18 Blood Pressure 149/88 H 118/79 Pulse Oximetry 97 98 Oxygen Flow Rate 0 0 Oxygen Delivery Method Room Air Oxygen Flow Rate 0 Narrative Exam Narrative: The patient is awake and in NAD. Normal speech and mentation. Normal judgement, and calm affect. Head is atraumatic and EOMI. Anicteric sclera. Oropharynx is moist. Neck is supple and trachea is midline. Lungs are CTA, with normal rate and effort. Heart is RRR, without murmur, gallop, or rub. Abdomen is soft, NT and ND. Extremities are free of edema. Good arm pulses. Good leg pulses. Skin is free of rash or lesions. Joints are free of swelling or deformity. Back with normal ROM. Neurologically his cranial nerves are intact. He has no discernible facial droop. His speech appears to be normal and his thought content appears to be sharp. The patient's cranial nerves appear to be intact. He does have very mild weakness of dorsiflexion of his left foot but otherwise his motor strength is fairly symmetric in arms and legs on both sides. Objective Labs 07/09/23 10:20 07/09/23 03:42 Labs: Laboratory Results - last 24 hr 07/08/23 07/08/23 07/08/23 16:52 16:52 16:52 WBC 15.9 H RBC 5.41 Hgb 15.8 Hct 46.1 MCV 85.2 MCH 29.2 MCHC 34.3 RDW 14.6 Plt Count 264 Neut % (Auto) 78.8 H Lymph % (Auto) 12.9 L [place] % (Auto) 6.6 Eos % (Auto) 1.3 L Baso % (Auto) 0.4 Neut # (Auto) 05362 H Lymph # (Auto) 2000 [place] # (Auto) 1000 H Eos # (Auto) 200 Baso # (Auto) 100 PT 11.8 INR 1.0 APTT 31 Sodium 138 Potassium 4.0 Chloride 105 Carbon Dioxide 23 BUN 18 Creatinine 0.91 Estimated GFR > 60 BUN/Creatinine Ratio 19.8 Glucose 153 H Hemoglobin A1c Calcium 9.4 Magnesium 2.1 Total Bilirubin 0.3 AST 23 ALT 30 Alkaline Phosphatase 55 Total Creatine Kinase 63 Troponin I < 0.012 NT-Pro-B Natriuret Pep Total Protein 7.4 Albumin 4.2 Globulin 3.2 Albumin/Globulin Ratio 1.3 Triglycerides Cholesterol LDL Cholesterol, Calc HDL Cholesterol Lipase 75 07/08/23 07/09/23 07/09/23 16:52 03:42 10:20 WBC 12.8 H RBC 5.40 Hgb 15.7 Hct 46.7 MCV 86.5 MCH 29.1 MCHC 33.7 RDW 15.0 H Plt Count 261 Neut % (Auto) 80.6 H Lymph % (Auto) 11.3 L [place] % (Auto) 6.1 Eos % (Auto) 1.5 L Baso % (Auto) 0.5 Neut # (Auto) 55831 H Lymph # (Auto) 1400 [place] # (Auto) 800 Eos # (Auto) 200 Baso # (Auto) 100 PT INR APTT Sodium 138 Potassium 4.0 Chloride 104 Carbon Dioxide 23 BUN 20 Creatinine 0.99 Estimated GFR > 60 BUN/Creatinine Ratio 20.2 Glucose 189 H Hemoglobin A1c Calcium 9.2 Magnesium Total Bilirubin AST ALT Alkaline Phosphatase Total Creatine Kinase Troponin I NT-Pro-B Natriuret Pep 38 Total Protein Albumin Globulin Albumin/Globulin Ratio Triglycerides 373 H Cholesterol 211 H LDL Cholesterol, Calc 111 H HDL Cholesterol 25 L Lipase 07/09/23 10:20 WBC RBC Hgb Hct MCV MCH MCHC RDW Plt Count Neut % (Auto) Lymph % (Auto) [place] % (Auto) Eos % (Auto) Baso % (Auto) Neut # (Auto) Lymph # (Auto) [place] # (Auto) Eos # (Auto) Baso # (Auto) PT INR APTT Sodium Potassium Chloride Carbon Dioxide BUN Creatinine Estimated GFR BUN/Creatinine Ratio Glucose Hemoglobin A1c 7.5 H Calcium Magnesium Total Bilirubin AST ALT Alkaline Phosphatase Total Creatine Kinase Troponin I NT-Pro-B Natriuret Pep Total Protein Albumin Globulin Albumin/Globulin Ratio Triglycerides Cholesterol LDL Cholesterol, Calc HDL Cholesterol Lipase [facility] Social History household members: spouse Smoking Status: Current every day smoker alcohol intake: current Discharge Plan Discharge Plan Patient Disposition: Home Provider Discharge Comment: You've unfortunately had a stroke. You will now be on larger aspirin daily plus a statin at night. I've sent metformin for your diabetes. Discharge orders & Medications Prescriptions: New aspirin 325 mg Tablet,Delayed Release (Dr/Ec) 325 mg PO DAILY Qty: 90 0RF atorvastatin 80 mg tablet 80 mg PO BEDTIME Qty: 90 0RF metformin 500 mg tablet 500 mg PO BIDWMEAL Qty: 60 0RF Continued amlodipine 10 mg tablet 10 mg PO DAILY testosterone cypionate 200 mg/mL oil 200 mg IM Q2W valsartan 160 mg tablet 160 mg PO DAILY aspirin 81 mg Tablet,Delayed Release (Dr/Ec) 81 mg PO DAILY Follow up/Referrals: Néstor Redd MD [Primary Care Provider] - 07/16/23 2:20 pm (Appt:07/16 @ 2:[address] Redd ) Visit Report/Discharge Packet Instructions: Atorvastatin, Metformin Stand Alone Forms: Patient Portal/API, Stroke Signs & Symptoms Discharge Data Primary Care Provider: Nésotr Redd Discharges patient from system. Discharge Date/Time: 07/09/23 16:00 Quality VTE Deep Vein Thrombosis/Pulmonary Embolism Present on Admission: No
== END 2023-07-09 16:00 | disposition home or self-care (01) | DRG 66 ==
LOC: ED 18:32 → AC 07-09 06:42
PROVIDERS: Student in an Organized Health Care Education/Training Program; Admitting Provider Hospitalist; Emergency Provider Emergency Medicine; PCP Family Medicine; Referring Provider Emergency Medicine; Visit Provider Hospitalist
DX: I63.89 Other cerebral infarction (principal); I62.02 Nontraumatic subacute subdural hemorrhage; R20.0 Anesthesia of skin; R29.701 NIHSS score 1; E11.9 Type 2 diabetes mellitus without complications; I10 Essential (primary) hypertension; F17.210 Nicotine dependence, cigarettes, uncomplicated; Z79.4 Long term (current) use of insulin
CPT/HCPCS: 36415; 70450; 70496; 70498; 70551; 71045; 80048; 80053; 80061; 82550; 82962; 83036; 83690; 83735; 83880; 84484; 85025; 85610; 85730; 92523; 93005; 93306; 97129; 97161; 97166; 97530; 99285; G0378

== ENCOUNTER 2024-11-17 03:30 | Inpatient (IN) | payer OTHER, SELFPAY ==
[2023-07-08 22:32] VITALS: BMI 38.5
[2024-11-17] VITALS (18 sets, daily range): BP systolic 129–172; BP diastolic 65–113; PULSE 67–104; RESP 17–19; TEMP 36.3–37.3; O2SAT 95–98; BMI 38.5
--- NOTE | 2024-11-17 03:42 | DI.RAD.S_ITS ---
PROCEDURE: XR CHEST 1V INDICATIONS: stroke alert TECHNIQUE: One view of the chest was acquired. COMPARISON: [facility], CR, XR CHEST 1V, 07/08/2023, 16:49. FINDINGS: Surgical changes and devices: None. Lungs and pleura: Lungs are clear. No pleural effusions or pneumothorax. Stable elevated right hemidiaphragm. Mediastinum: Mediastinal contours appear normal. Heart size is normal. Bones and chest wall: No suspicious bony lesions. Overlying soft tissues appear unremarkable. IMPRESSION: No acute cardiopulmonary abnormality is seen. Dictated by: Ray Ordoñez M.D. on 11/17/2024 at 8:21 Approved by: aRy Ordoñez M.D. on 11/17/2024 at 8:21
--- NOTE | 2024-11-17 03:42 | DI.CT.S_ITS ---
PROCEDURE: CT ANGIO HEAD AND NECK INDICATIONS: left sided weakness TECHNIQUE: After the administration of intravenous contrast, 1 mm thick sections acquired from the aortic arch through the [place]. 3-dimensional elskxxe-lamfdxqca-lmefsrncha (MIP) and/or volume rendering reformats were acquired of the central intracranial vasculature and neck separately. For radiation dose reduction, the following was used: automated exposure control, adjustment of mA and/or kV according to patient size. COMPARISON: [facility], CT, CT STROKE, 11/17/2024, 3:47. [facility], CT, CT HEAD/BRAIN WO CON, 07/09/2023, 7:45. [facility], MR, MR HEAD/BRAIN WO CON, 07/08/2023, 20:26. [facility], CT, CT ANGIO HEAD AND NECK, 07/08/2023, 17:00. FINDINGS: Image quality: Diagnostic. BRAIN: CSF spaces: Ventricles are normal in size and shape. Basal cisterns are patent. No extra-axial fluid collections. Brain: No significant abnormality of the brain can be seen. Skull and face: Calvarium and facial bones appear intact, without suspicious lesions. Orbits appear normal. Sinuses: Sinuses and mastoids are clear. 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 The occlusion measures approximately 6 mm in length. This results in mildly hypo attenuated flow in the right middle cerebral artery branches. There is no right MCA occlusion or focal filling defect or other occlusion or focal filling defects seen other than the right supraclinoid carotid. The anterior communicating artery is seen. No aneurysms are seen. Posterior circulation: Dominant patent left vertebral artery. Right vertebral artery diffusely diminutive, normal variant. They join to form a normal caliber basilar artery. Flow within the posterior cerebral arteries is normal and symmetric. No aneurysms are seen. NECK CT ANGIOGRAPHY: Carotid system: The great vessels demonstrate a conventional anatomy as they arise from the aortic arch. The origins of the common carotid arteries appear patent. The common carotid arteries demonstrate normal caliber and courses. The bifurcation regions are both widely patent. The origin of the right internal carotid artery is normal in caliber. The right internal carotid more superiorly becomes somewhat diminutive. It occludes for short segment at the supraclinoid carotid, a chronic occlusion. The left internal carotid artery is widely patent. Posterior circulation: Dominant patent left vertebral artery. Right vertebral artery diffusely diminutive, normal variant. They join to form a normal caliber basilar artery. Soft tissues: Visualized neck soft tissues demonstrate no suspicious abnormalities. Bones: No suspicious bony lesions. Visualized cervical spine appears normally aligned. IMPRESSION: 1. 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 2. No acute focal filling defects or vascular cut offs intracranially. 3. Patent internal carotid artery origins. Right internal carotid artery in the neck is somewhat diminutive, leading up to the short segment supraclinoid carotid occlusion. Comment: Final report is concordant with preliminary interpretation provided by [facility]. A preliminary report was provided to the referring ER physician on 11/17/2024 at 0528 hours PST. Any quantitative measurements of stenosis were performed using NASCET criteria. Dictated by: Montrell Oh M.D. on 11/17/2024 at 8:15 Approved by: Montrell Oh M.D. on 11/17/2024 at 8:35
--- NOTE | 2024-11-17 03:42 | DI.CT.S_ITS ---
PROCEDURE: CT STROKE INDICATIONS: left sided weakness TECHNIQUE: Noncontrast 4.5 mm thick angled axial sections acquired from the foramen magnum to the vertex, with coronal reformats. For radiation dose reduction, the following was used: automated exposure control, adjustment of mA and/or kV according to patient size. COMPARISON: None. FINDINGS: Image quality: Diagnostic. CSF spaces: Basal cisterns are patent. No extra-axial fluid collections. The ventricles are symmetric in size and shape. Brain: No intracranial bleeds or masses. There is cerebral volume loss for age, with resultant ventricular and sulcal prominence. There are periventricular and deep white matter chronic small vessel ischemic changes. There is intracranial internal carotid artery atherosclerosis. Old moderate sized infarct with encephalomalacia involving the right parietal lobe and portion of the right occipital lobe and right temporal lobe. Skull and face: Calvarium and visualized facial bones appear intact, without suspicious lesions. Sinuses: Visualized sinuses and mastoids are clear. IMPRESSION: No acute intracranial pathology. Old moderate sized right-sided infarct. Comment: Final report is concordant with preliminary interpretation provided by [facility]. Preliminary interpretation was discussed with the referring ED physician on 11/17/2024 at 0435 hours. This study fulfills neurological imaging criteria for inclusion or exclusion of acute stroke therapies based on available published neurological guidelines. Dictated by: Montrell Oh M.D. on 11/17/2024 at 8:06 Approved by: Montrell Oh M.D. on 11/17/2024 at 8:09
--- NOTE | 2024-11-17 03:42 | EKG_ITS ---
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
--- NOTE | 2024-11-17 03:43 | ED.NEUROSD ---
HPI - Neuro Symptoms/Deficit General Chief Complaint: Neuro Symptoms/Deficit Stated Complaint: thinks he had a stroke Time Seen by Provider: 11/17/24 03:31 History of Present Illness HPI Narrative: 64-year-old male with a history of CVA hyperlipidemia diabetes presents to the ED from home for evaluation of left-sided weakness, he states that he has always had mild left-sided weakness numbness tingling ongoing persistent since his stroke approximately a year ago, he states that he has also been having left lower leg weakness pain ongoing persistent for the past few days, states he has been having difficulty lifting his leg, has been having to drag his leg but denies any trauma or falls. Not on any blood thinners. Patient states he had an acute worsening of his symptoms at around 2:00 a.m. this morning, states that he went to bed feeling ?fine/at its baseline. At time of evaluation patient NIH of 2 for decreased sensation to the left upper extremity and weakness to the left lower extremity. Patient states that he went to sleep at 9:00 p.m.. Denies any other symptoms at this time not on any blood thinner. Related Data Home Medications Medication Instructions Recorded Confirmed amlodipine 10 mg tablet 10 mg PO DAILY 07/08/23 07/08/23 aspirin 81 mg tablet,delayed 81 mg PO DAILY 07/08/23 07/08/23 release testosterone cypionate 200 mg/mL 200 mg IM Q2W 07/08/23 07/08/23 intramuscular oil valsartan 160 mg tablet 160 mg PO DAILY 07/08/23 07/08/23 Previous Rx's Medication Instructions Recorded aspirin 325 mg tablet,delayed 325 mg PO DAILY #90 tabs 07/09/23 release atorvastatin 80 mg tablet 80 mg PO BEDTIME #90 tabs 07/09/23 metformin 500 mg tablet 500 mg PO BIDWMEAL #60 tabs 07/09/23 Allergies Allergy/AdvReac Type Severity Reaction Status Date / Time No Known Drug Allergies Allergy Verified 07/08/23 23:40 Review of Systems Review of Systems Narrative: General: Denies fever, chills, weight loss HEENT: Denies headache, eye drainage, eye irritation, head trauma, sore throat, voice change Cardiovascular: Denies any chest pain, palpitations, shortness of breath, tachycardia Respiratory: Denies any shortness of breath, cough, wheeze, stridor GI/: Denies any abdominal pain, nausea, vomiting, diarrhea, bright red blood per rectum, melanotic stools, urinary frequency, urinary retention, dysuria, hematuria MSK: Positive left leg pain/foot pain, Denies any joint pain, muscle pains, swelling Skin: Denies any rashes, lesions, discoloration Neuro: Positive weakness to the left side, Denies any headache, lightheadedness, dizziness, fainting, weakness Psych: Denies SI/HI Patient History Social History household members: spouse Smoking Status: Current every day smoker alcohol intake: current Smoking Status: Current every day smoker tobacco type: cigarettes alcohol intake frequency: holidays/special occasions only Exam Narrative Exam Narrative: General: Cooperative, comfortable, well-developed, not in acute distress HEENT: Normocephalic, atraumatic, PERRLA, normal sclera, eyelids normal, Neck: Active full range of motion, atraumatic Chest: Normal to inspection, negative crepitus, no overlying erythema ecchymosis Respiratory: Normal respiratory effort, not in acute respiratory distress, clear to auscultation bilaterally negative cough, wheeze, tachypnea, rhonchi, rales Cardiology: Regular rate rhythm negative gallop, murmur, rubs GI/: Normal to inspection, soft, nonrigid, no tenderness to palpation, exam deferred MSK: Patient with inability to dorsiflex the left foot however no overlying erythema ecchymosis no crepitus no tenderness to palpation no other gross deformity Skin: No rashes lesions noted Neuro: NIH of 2 for left upper extremity decreased sensation and left leg drift, Alert awake oriented x3, moves all 4 extremities spontaneously, cranial nerves intact, able to answer all questions appropriately follows commands appropriately Psych: Cooperative, negative suicidal or homicidal ideations Initial Vital Signs Initial Vital Signs: Vital Signs Temperature 99.2 F 11/17/24 03:34 Pulse Rate 104 H 11/17/24 03:34 Respiratory Rate 18 11/17/24 03:34 Blood Pressure 172/113 H 11/17/24 03:34 Pulse Oximetry 98 11/17/24 03:34 Oxygen Delivery Method Room Air 11/17/24 03:34 Scores NIH Stroke Scale Level of Conciousness: Alert, keenly responsive Ask month/age: Answers both questions correctly. Open/close eyes, close hand: Performs both tasks correctly Best gaze horizontal: Normal Visual tabor: No visual loss Facial palsy: Normal symetrical movement Left arm drift: No drift for full 10 sec Right arm drift: No drift for full 10 sec Left leg drift: Drifts down, not to bed Right leg drift: No drift for full 5 sec Limb ataxia: Absent Sensory on face/arms/legs: Mild to moderate sensory loss, can tell touch (mildly decreased to distal left arm/hand) Best language: No aphasia, normal Dysarthria: Normal Extinction or inattention: No abnormality Total NIH Stroke scale score: 2 Course Orders Ordered: ED Orders 11/17/24 03:[address] angio head and neck Stat CXR [XR chest 1V] Stat Urinalysis and Microscopic Stat Urine Drug Screen, Rapid Stat EKG-12 Lead Stat 11/17/24 04:03 Complete Blood Count AUTO DIFF Stat Comprehensive Metabolic Panel Stat Ethanol (ETOH) Stat PTT Partial Thromboplastin [place] Stat Prothrombin Time INR Stat Troponin & CK Cardiac Panel Stat 11/17/24 04:23 COVID19 -Nasal RAPID Stat 11/17/24 04:55 MR head/brain wo con Urgent Vital Signs Vital signs: Vital Signs - 8 hr 11/17/24 03:34 11/17/24 03:43 11/17/24 04:18 Temperature 99.2 F Pulse Rate 104 H 98 H Respiratory Rate 18 18 Blood Pressure 172/113 H Pulse Oximetry 98 97 97 Oxygen Delivery Method Room Air 11/17/24 04:18 11/17/24 04:30 11/17/24 04:30 Temperature Pulse Rate 97 H Respiratory Rate 18 Blood Pressure 152/68 H 152/68 H Pulse Oximetry 96 Oxygen Delivery Method MDM - Neuro Symptoms/Deficit Differential Diagnosis Differential diagnosis: Likely subarachnoid hemorrhage, cerebrovascular accident, transient cerebral ischemia and other (Peroneal nerve compression) Lab Data 11/17/24 04:03 11/17/24 04:03 Labs: Lab Results 11/17/24 11/17/24 Range/Units 04:03 04:23 WBC 10.3 (4.5-11.0) X10^3/uL RBC 5.24 (4.5-5.9) X10^6/uL Hgb 15.2 (13.5-17.5) g/dL Hct 45.8 (41-53) % MCV 87.4 (80-100) fL MCH 29.1 (26-34) PG MCHC 33.3 (30-36) % RDW 13.8 (11.6-14.8) % Plt Count 191 (150-400) X10^3/uL Neut % (Auto) 74.4 (50-75) % Lymph % (Auto) 16.9 L (25-40) % [place] % (Auto) 5.9 (3-14) % Eos % (Auto) 2.0 (2-4) % Baso % (Auto) 0.8 (0-2) % Neut # (Auto) 7600 H (1125-2748) /uL Lymph # (Auto) 1700 (3408-1697) /uL [place] # (Auto) 600 (0-900) /uL Eos # (Auto) 200 (0-450) /uL Baso # (Auto) 100 (0-100) /uL PT 10.0 (9.4-12.5) SECONDS INR 0.9 (0.9-1.3) APTT 22 L (25.1-36.5) SECONDS Sodium 139 (137-145) mmol/L Potassium 4.5 (3.4-5.1) mmol/L Chloride 109 H (98-107) mmol/L Carbon Dioxide 20 L (22-32) mmol/L BUN 21 H (9-20) mg/dL Creatinine 0.94 (0.66-1.25) mg/dL Estimated GFR > 60 (>60) mL/min BUN/Creatinine Ratio 22.3 H (6-22) Glucose 172 H (80-110) mg/dL Calcium 9.2 (8.4-10.2) mg/dL Total Bilirubin 0.4 (0.2-1.3) mg/dL AST 31 (17-59) IU/L ALT 43 (<50) IU/L Alkaline Phosphatase 64 (38-126) U/L Total Creatine Kinase 183 H (55-170) U/L Troponin I < 0.012 (0.01-0.034) ng/mL Total Protein 7.1 (6.3-8.2) g/dL Albumin 4.3 (3.5-5.0) g/dL Globulin 2.8 (1.7-4.1) g/dL Albumin/Globulin Ratio 1.5 (1.0-2.8) Ethyl Alcohol < 10 ( - 10) mg/dL SARS-CoV-2 (PCR) Negative (Negative) Point of Care Testing Glucose POC 164 Imaging Data Chest x-ray: Radiologist's Impression: Preliminary read showing no acute cardiopulmonary abnormalities CT scan - head: Radiologist's Impression: Preliminary read showing remote infarct involving the right posterior parietal and occipital lobes, no intracranial hemorrhage mass effect midline shift or hydrocephalus. States if there is clinical concern for superimposed acute infarct would recommend MRI CTA - brain/neck: Radiologist's Impression: Preliminary read showing [id number] diffuse attenuation appearance of the right ICA distal to the carotid bulb, severe age indeterminate stenosis versus occlusion of the supraclinoid right ICA with reconstitution of flow in the more distal right ICA. Attention with the appearance of the right relative to the left MCA branches ECG Data Interpretation: EKG interpreted by ED physicain, sinus 91 bpm, qtc 415, normal axis, no STEMI MDM Narrative Medical decision making narrative: 64-year-old male with a history of hypertension CVA on aspirin statin comes into the ED from home for evaluation of decreased sensation and weakness to his left extremities, states he does have a history/baseline decreased sensation weakness due to history of stroke proximally 1-2 years ago however states that symptoms got worse this morning at around 2:00 a.m. upon waking up. Patient states that he has been having issues with his knee states that it has been giving out but today he was unable to completely move his left lower extremity denies any trauma or falls. Also states that he is having worsening paresthesias of his left hand, states that he has been seeing a chiropractor for this. At time of initial evaluation patient NIH of 2 given decreased sensation to the left upper extremity and slight drift of the left lower extremity. Patient's blood glucose 164 upon arrival. Patient had lab work imaging performed here in the emergency department Review of records show that patient was admitted and seen here on 07/08/2023 4 right-sided stroke, MRI showed small petechial hemorrhage, was evaluated by tele neuro at that time and recommended full dose aspirin only no Plavix as well as high-dose statin. At that time it was noted that patient also had mild weakness of dorsiflexion of his left foot 0436: Preliminary read showing remote infarct of the right posterior parietal occipital lobes no acute however preliminary showing recommendation for MRI if superimposed infarct is suspected. Given patient with similar findings as previous with possible recrudescence versus new acute superimposed infarct will reach out to tele neuro. 0442: Discussed with Dr. patton (teleneuro), who personally reviewed the CT brain and CTA angio head and neck, states patient needs admission for MRI/TIA workup, states no change with current therapy, continue aspirin statin at this time would not recommend adding dual antiplatelet therapy currently, states would need MRI results to decide that, states to reach out for any abnormal findings to determine next step/course for adjustment to the patient's treatment. Recommend permissive HTN, for now keep SBP >140, if drops below would recommend NS bolus 0520: Patient re-evaluated no new complaints at this time, symptoms unchanged at this time, informed him of need for admission MRI and further evaluation treatment in the hospital, they understand and agree with this plan, call placed to hospitalist for admission 0600: The patient's management plan was discussed Dr. Fields, who agrees to admit the patient to their service and assumes care of this patient at this time. Full admission orders will be placed by the primary team. Discharge Plan Departure Patient Disposition: Admitted as Observation Clinical Impression: Transient ischemic attack
[2024-11-17 04:11] LABS: Add Manual Diff / Slide Review NO; Basophils Absolute Auto 100 /uL (0-100); Basophils Percent Auto 0.8 % (0-2); Eosinophils Absolute Auto 200 /uL (0-450); Hematocrit 45.8 % (41-53); Hemoglobin 15.2 g/dL (13.5-17.5); Lymphocytes Absolute Auto 1700 /uL (1100-4500); Lymphocytes Percent Auto 16.9 % (25-40); Mean Corpuscular HGB Conc 33.3 % (30-36); Mean Corpuscular Hemoglobin 29.1 PG (26-34); Mean Corpuscular Volume 87.4 fL (80-100); Monocytes Absolute Auto 600 /uL (0-900); Monocytes Percent Auto 5.9 % (3-14); Neutrophils Absolute Auto 7600 /uL (1500-7000); Neutrophils Percent Auto 74.4 % (50-75); Platelet Count 191 X10^3/uL (150-400); Red Blood Cell Count 5.24 X10^6/uL (4.5-5.9); Red Cell Distribution Width 13.8 % (11.6-14.8); White Blood Cell Count 10.3 X10^3/uL (4.5-11.0)
[2024-11-17 04:18] LABS: INR 0.9 (0.9-1.3)
--- NOTE | 2024-11-17 04:19 | PC.NURSE ---
Patient has no deficits at this time other than weakness in his left foot for the last day. When patient woke up tonight to get up to go to the bathroom he states he had difficulty using the left foot. Per ,he was having issues with it last night ans she was trying to rub a knot out that was above his foot on the anterior ankle. Patient also had a recent adjustment at the chiropractor
[2024-11-17 04:21] LABS: Alanine Aminotransferase 43 IU/L (<50); Albumin 4.3 g/dL (3.5-5.0); Albumin Globulin Ratio 1.5 (1.0-2.8); Alkaline Phosphatase 64 U/L (38-126); Aspartate Aminotransferase 31 IU/L (17-59); BUN Creatinine Ratio 22.3 (6-22); Bilirubin Total 0.4 mg/dL (0.2-1.3); Blood Urea Nitrogen 21 mg/dL (9-20); Calcium 9.2 mg/dL (8.4-10.2); Carbon Dioxide 20 mmol/L (22-32); Chloride 109 mmol/L (98-107); Creatine Kinase 183 U/L (55-170); Estimated Glomerular Filt Rate > 60 mL/min (>60); Globulin 2.8 g/dL (1.7-4.1); Glucose 172 mg/dL (80-110); HEMOLYSIS 16 (0-50); PTT Partial Thromboplastin Tim 22 SECONDS (25.1-36.5); Potassium 4.5 mmol/L (3.4-5.1); Sodium 139 mmol/L (137-145); Total Protein 7.1 g/dL (6.3-8.2)
[2024-11-17 04:30] LABS: Ethanol (ETOH) < 10 mg/dL
[2024-11-17 04:32] LABS: Troponin I < 0.012 ng/mL (0.01-0.034)
[2024-11-17 04:42] LABS: COVID19 -Nasal RAPID Negative (Negative)
--- NOTE | 2024-11-17 06:08 | ED_ITS ---
HPI - Neuro Symptoms/Deficit General Chief Complaint: Neuro Symptoms/Deficit Stated Complaint: thinks he had a stroke Time Seen by Provider: 11/17/24 03:31 Source: patient and family Mode of arrival: Wheelchair History of Present Illness HPI Narrative: Miguel Gooden is a 64 y/o male, with history of Obesity (BMI 38.5)DM 2 on Metformin, HTN, on anti HTN sive meds, Current everyday cig smoker, Ischemic stroke with hemorrhagic transformation (admitted 07/08/23) , with LLE weakness and parasthesias, and LUE weakness, and Left foot drag sec to R sided Stroke , MRI brain 07.09.2023: which showed: Date of Service: 07/08/23 PROCEDURE: MR HEAD/BRAIN WO CON IMPRESSION: 1. Large cortical and subcortical subacute infarct involving the right posterior parietal, posterior temporal, and occipital lobes with associated cortical hemorrhagic conversion and laminar necrosis. 2. Additional small punctate subacute infarcts in the right frontal, parietal, and temporal lobes. Given the distribution within the anterior and posterior circulation, the findings suggest sequelae of right-sided embolic phenomenon. An Echo done 07/08/23: LVEF 55-60%, no abn findings Pt was at that time taking ASA 81 mg, per neuro recommendations, ASA increased to full dose at 325 mg daily and Plavix held given hgic transformation. Patient stastes he has noted for last couple of months increasing weakness of his Left lower leg and Left foot, and also his tingling in LUE getting worse over last couple of months. He has been going to a chiropractor for his pinched nerve Left shoulder, as maybe that would improve the tingling in his Left arm/ LUE. Pt states he was able top walk till yesterday and his Left foot was not as weak as it is after he woke up yesterday, at night, to use the washroom. Pt states he does not recall exact time, but was past midnight. He had gone to sleep yesterday at 9 pm. Pt noted upon waking up, that he had great difficulty walking to the washroom, as he could not lift his Left foot, sec to weakness, and he dragged his Left foot, and had to use his cane, to walk to the washroom. He informed his , about his L foot weakness, and after an hour or so getting ready to come to ED, pt was driven to ED by his . He denies any other neuro deficit, and denies speech difficulties, denies vision changes or double vision or loss of vision. Denies swallowing problems. No word finding difficulty. Denies vertigo, or recent fall or trauma Denies CP, SOB, cough, Ligght headedness,syncope, irregular heart rhythm, DVT or PE. He states he sometimes get short winded , climbing 1-2 flights of stairs in his house, but he had been doing exertional chores at his home, remodeling his kitchen, and had not experienced CP, SOB, or palpitations. He states he has been taking all his meds regularly, including his Atorvastatin, Losartan and Amlodipine, Metformin, and ASA 325 mg daily, he last took yesterday morning. He and his have been trying to quit smoking, but has not yet been able to though they did stop smoking cigs, for a few weeks as a new year resolution, in the beginning of October 2024. He has resumed smoking cigs again. In ED , his BP was elevated at 172/113, HR 104, Afebrile, RR 18, O2 sats 97% on RA EKG : Sinus Rhythm , no arrhythmias, no acute changes CT head: Radiologist's Impression: Preliminary read showing remote infarct involving the right posterior parietal and occipital lobes, no intra cranial hemorrhage mass effect midline shift or hydrocephalus. States if there is clinical concern for superimposed acute infarct would recommend MRI CTA - brain/neck: Radiologist's Impression: Preliminary read showing [id number] diffuse attenuation appearance of the right ICA distal to the carotid bulb, severe age indeterminate stenosis versus occlusion of the supra clinoid right ICA with reconstitution of flow in the more distal right ICA. Attention with the appearance of the right relative to the left MCA branches ECG Data Interpretation: EKG interpreted by ED physicain, sinus 91 bpm, qtc 415, normal axis, no STEMI ED Provider also consulted Tele Stroke/ Neurologist Dr Leon, who advised to observe pt in hospital, and recommended MRI Brain, continue SASA 325 mg daily, and high dose Statin / at the dose that pt is already taking,and depending upon the Brain MRI result , to decide if shall need adding Plavix. Pt admitted as observation. , On Anticoagulants: No Related Data Home Medications Medication Instructions Recorded Confirmed amlodipine 10 mg tablet 10 mg PO DAILY 07/08/23 07/08/23 aspirin 81 mg tablet,delayed 81 mg PO DAILY 07/08/23 07/08/23 release testosterone cypionate 200 mg/mL 200 mg IM Q2W 07/08/23 07/08/23 intramuscular oil valsartan 160 mg tablet 160 mg PO DAILY 07/08/23 07/08/23 Previous Rx's Medication Instructions Recorded aspirin 325 mg tablet,delayed 325 mg PO DAILY #90 tabs 07/09/23 release atorvastatin 80 mg tablet 80 mg PO BEDTIME #90 tabs 07/09/23 metformin 500 mg tablet 500 mg PO BIDWMEAL #60 tabs 07/09/23 Allergies Allergy/AdvReac Type Severity Reaction Status Date / Time No Known Drug Allergies Allergy Verified 07/08/23 23:40 Review of Systems Review of Systems ROS Unobtainable: All systems reviewed & are unremarkable except as noted in HPI and below Neurologic Neurologic: Reports as per HPI Hematologic/Lymphatic On Anticoagulants: No Patient History Social History household members: spouse Smoking Status: Current every day smoker alcohol intake: current Smoking Status: Current every day smoker tobacco type: cigarettes alcohol intake frequency: holidays/special occasions only Exam Narrative Exam Narrative: Patient is laying in bed, appears comfortable, answering all questions appropriately. Pt is cooperative and pleasant. HEENT Head: normal to inspection, normocephalic and atraumatic Face and sinus: normal facial exam Mouth: oral mucosae normal and moist mucous membranes Throat: posterior oropharynx normal Eyes General: appearance normal, both eyes and all related structures Pupils: PERRL EOM: EOM intact bilaterally Neck Neck: normal visual inspection and full ROM Chest Chest: normal inspection of the chest Resp Effort & Inspection: normal respiratory effort and able to speak in complete sentences Auscultation: clear to auscultation bilaterally Cardio Palpation: normal PMI Rate: regular rate Rhythm: regular rhythm Heart Sounds: S1 normal and S2 normal GI Inspection: normal to inspection Palpation: soft and no hepato splenomegaly Auscultation: normal bowel sounds Skin General: no rashes or lesions noted Lesions: no lesions Rashes: no rashes Trauma: no lacerations or abrasions Neuro General: patient alert, patient awake, patient oriented x3 Cranial Nerves: CN's II-XI intact bilaterally Cognition: normal cognition Speech: speech normal Gait: not checked ( per pt's history unable to walk without support sec to Left foot weakness) Motor: muscle tone normal throughout except LLE : Left foot : weak dorsiflexion : at 2/5 Left leg slight drift Strength Left leg : 3-4/5 DTRs: WNL 2+ in upper and lower extremities bilat symmetric Sensory Exam: no sensory deficits to light touch noted Pt has subjective sensation of tingling of his LUE ( on going since 07/07/23) Extremities: General: full ROM and no calf tenderness bilat Psych Appearance: grossly normal Mental Status: mental status grossly normal Speech and Movement: speech and movement normal Initial Vital Signs Initial Vital Signs: Vital Signs Temperature 99.2 F 11/17/24 03:34 Pulse Rate 104 H 11/17/24 03:34 Respiratory Rate 18 11/17/24 03:34 Blood Pressure 172/113 H 11/17/24 03:34 Pulse Oximetry 98 11/17/24 03:34 Oxygen Delivery Method Room Air 11/17/24 03:34 Course Orders Ordered: ED Orders 11/17/24 03:[address] angio head and neck Stat CXR [XR chest 1V] Stat EKG-12 Lead Stat 11/17/24 04:03 Complete Blood Count AUTO DIFF Stat Comprehensive Metabolic Panel Stat Ethanol (ETOH) Stat PTT Partial Thromboplastin [place] Stat Prothrombin Time INR Stat Troponin & CK Cardiac Panel Stat 11/17/24 04:23 COVID19 -Nasal RAPID Stat 11/17/24 04:55 MR head/brain wo con Urgent 11/17/24 06:10 Urinalysis and Microscopic Stat Urine Drug Screen, Rapid Stat Vital Signs Vital signs: Vital Signs - 8 hr 11/17/24 03:34 11/17/24 03:43 11/17/24 04:18 Temperature 99.2 F Pulse Rate 104 H 98 H Respiratory Rate 18 18 Blood Pressure 172/113 H Pulse Oximetry 98 97 97 Oxygen Delivery Method Room Air 11/17/24 04:18 11/17/24 04:30 11/17/24 04:30 Temperature Pulse Rate 97 H Respiratory Rate 18 Blood Pressure 152/68 H 152/68 H Pulse Oximetry 96 Oxygen Delivery Method 11/17/24 05:00 11/17/24 05:00 11/17/24 05:30 Temperature Pulse Rate 89 Respiratory Rate Blood Pressure 151/71 H 138/65 Pulse Oximetry 95 Oxygen Delivery Method 11/17/24 05:30 11/17/24 06:00 Temperature Pulse Rate 82 83 Respiratory Rate 18 Blood Pressure Pulse Oximetry 96 95 Oxygen Delivery Method MDM - Neuro Symptoms/Deficit Medical Records Attestation: I reviewed the patient's medical records. Lab Data Attestation: I reviewed the patient's lab results. 11/17/24 04:03 11/17/24 04:03 Labs: Lab Results 11/17/24 11/17/24 Range/Units 04:03 04:23 WBC 10.3 (4.5-11.0) X10^3/uL RBC 5.24 (4.5-5.9) X10^6/uL Hgb 15.2 (13.5-17.5) g/dL Hct 45.8 (41-53) % MCV 87.4 (80-100) fL MCH 29.1 (26-34) PG MCHC 33.3 (30-36) % RDW 13.8 (11.6-14.8) % Plt Count 191 (150-400) X10^3/uL Neut % (Auto) 74.4 (50-75) % Lymph % (Auto) 16.9 L (25-40) % [place] % (Auto) 5.9 (3-14) % Eos % (Auto) 2.0 (2-4) % Baso % (Auto) 0.8 (0-2) % Neut # (Auto) 7600 H (5888-4364) /uL Lymph # (Auto) 1700 (9141-5960) /uL [place] # (Auto) 600 (0-900) /uL Eos # (Auto) 200 (0-450) /uL Baso # (Auto) 100 (0-100) /uL PT 10.0 (9.4-12.5) SECONDS INR 0.9 (0.9-1.3) APTT 22 L (25.1-36.5) SECONDS Sodium 139 (137-145) mmol/L Potassium 4.5 (3.4-5.1) mmol/L Chloride 109 H (98-107) mmol/L Carbon Dioxide 20 L (22-32) mmol/L BUN 21 H (9-20) mg/dL Creatinine 0.94 (0.66-1.25) mg/dL Estimated GFR > 60 (>60) mL/min BUN/Creatinine Ratio 22.3 H (6-22) Glucose 172 H (80-110) mg/dL Calcium 9.2 (8.4-10.2) mg/dL Total Bilirubin 0.4 (0.2-1.3) mg/dL AST 31 (17-59) IU/L ALT 43 (<50) IU/L Alkaline Phosphatase 64 (38-126) U/L Total Creatine Kinase 183 H (55-170) U/L Troponin I < 0.012 (0.01-0.034) ng/mL Total Protein 7.1 (6.3-8.2) g/dL Albumin 4.3 (3.5-5.0) g/dL Globulin 2.8 (1.7-4.1) g/dL Albumin/Globulin Ratio 1.5 (1.0-2.8) Ethyl Alcohol < 10 ( - 10) mg/dL SARS-CoV-2 (PCR) Negative (Negative) Point of Care Testing Glucose POC 164 ECG Data Attestation: I personally reviewed and interpreted this ECG as follows: Interpretation: see above MDM Narrative Medical decision making narrative: Assessment / Plan: 1/TIA vs recurrent stroke : Neuro deficits NIHSS at 2 , Left dorsiflexion is weak, with gait disturbance and continuing tingling sensation in LUE, in patient with h/o Right sided Ischemic Stroke with small petechial hge ( R Parieto occipital area), CT head Negative for bleed. CTA head and neck : Vertebral A and ICA narrowing / non critical Pt has been taking his ASA 325 mg daily, as well as his high dose statin Atorvastatin 80 mg daily As above Neurology consulted per ED, and advises MRI brain and continuation of ASA at 325 mg daily and high dose Statin ( continue Atorvastatin) at 80 mg daily / and allow Permissive HTN MRI Brain result shall determine : to add Plavix or not and other recommendations. MRI Brain result when becomes available to be discussed with Neurologist. by Day Hospitalist. Neuro checks PT/OT evaluation Echo Cardiac monitoring Fall Precautions 2/ Current Cig smoker: As above , pt understands hazardous effects on health sec to continuing to smoke. He shall make all efforts to quit the habit. He agrees to nicotine patch 3/HTN , has been taking his anti HTN meds at home. Initial BPs elevated. Repeat improved. Allow Permissive HTN / Keep SBP > 140 4/ HLD see above Continue Atorvastatin high dose 5/DM 2 not well controlled/ has Hyperglycemia BG 172, . Accu check AC/ HS . Reg Insulin per Sliding scale. Hol;d Metformin during Hospital stay Check Hb A1C 6/ Obesity , BMI not at goal / Continue Life style modifications Discharge Plan Departure Patient Disposition: Admitted as Observation Clinical Impression: Transient ischemic attack
[2024-11-17 06:17] LABS: Appearance Urine UA CLEAR; Bilirubin Urine UA NEGATIVE (NEGATIVE); Color Urine UA YELLOW; Glucose Urine UA NEGATIVE (Negative); Ketones Urine UA NEGATIVE (NEGATIVE); Leukocyte Esterase Urine UA NEGATIVE (NEGATIVE); Nitrite Urine UA NEGATIVE (Negative); Occult Blood Urine UA NEGATIVE (Negative); Protein Urine UA NEGATIVE (Negative); Urobilinogen Urine UA 0.2 E.U./dL (0.2); pH Urine UA 5.5 (4.5-8.0)
[2024-11-17 06:19] LABS: UR Morphine/Opiate cutoff 300 Negative (Negative); Ur Creatinine Normal (Normal); Ur Specific Gravity Normal (Normal); Urine Amphetamines Negative (Negative); Urine Barbiturates Negative (Negative); Urine Benzodiazepines Negative (Negative); Urine Cocaine Negative (Negative); Urine MDMA Negative (Negative); Urine Methadone Negative (Negative); Urine Methamphetamines Negative (Negative); Urine Oxycodone Negative (Negative); Urine Phencyclidine Negative (Negative); Urine Tetrahydrocannabinol Negative (Negative); Urine Tricyclic Antidepressant Negative (Negative); Urine pH Normal (Normal)
[2024-11-17 06:23] LABS: Bacteria Urine None Seen; Culture Indicated Urine Cult Not Indicated; RBC Urine None Seen (0-5/HPF); Squamous Epithelial Cell Urine 0-1 /HPF (0-5/HPF); Urine Volume 10mL (spun); WBC Urine None Seen (0-5/HPF)
--- NOTE | 2024-11-17 08:04 | DI.MRI.S_ITS ---
PROCEDURE: MR HEAD/BRAIN WO CON INDICATIONS: TIA rule out stroke TECHNIQUE: Non-contrast axial T1 spin echo, axial T2 fast spin echo, sagittal and axial FLAIR, coronal T2 fast spin echo, axial gradient echo, axial diffusion and ADC through the brain. COMPARISON: [facility], MR, MR HEAD/BRAIN WO CON, 07/08/2023, 20:26. FINDINGS: Image quality: Excellent. CSF spaces: Ventricles appear symmetric in size and shape. Basal cisterns are patent. No extra-axial fluid collections. Brain: No intracranial bleeds or mass effects. There is cerebral volume loss for age. There are mild periventricular and deep white matter chronic small vessel ischemic changes. Brainstem appears normal. Again noted is a moderately large sized remote right MCA distribution infarct involving the right posterior parietal, posterior temporal, and occipital lobes with resultant encephalomalacia. There is associated hemosiderin deposition. Additionally, near the boundaries of the remote infarct, are multiple small areas of restricted water diffusion, including a focus in the paramidline high posterior right frontal lobe near the vertex, measuring 0.8 x 1.6 cm on axial diffusion image 21 of series 11. Additionally, on that same image, there is a thin rim of additional frontal cortical infarct. Additionally, there is punctate additional right posterior parietal cortical/subcortical infarct on axial diffusion image 17 of series 11. There is very subtle punctate infarct in the anterior body of the right caudate. These air is are associated with cytotoxic edema on the axial FLAIR sequence. No chronic ischemic insults. Normal intravascular flow voids are present. Skull and face: Calvarial bone marrow is normal in signal. Orbits are normal. Sinuses: Sinuses and mastoids are clear. IMPRESSION: 1. Moderately large old posterior right MCA distribution infarct with encephalomalacia. 2. Multiple small areas of acute infarct, also in the MCA distribution. Dictated by: Montrell Oh M.D. on 11/17/2024 at 10:21 Approved by: Montrell Oh M.D. on 11/17/2024 at 10:29
[2024-11-17] MEDS: ATORVASTATIN 20 MG TABLET 80 MG PO (08:46)
[2024-11-17] MEDS: ASPIRIN EC 81 MG TABLET 325 MG PO (08:46)
--- NOTE | 2024-11-17 10:25 | PT.IIE ---
Current Diagnoses Transient cerebral ischemic attack, unspecified (11/17/24) Cerebral infarction, unspecified (11/17/24) Physical Therapy Inpatient Evaluation/Re-Eval M1 PT/OT-IP Prior Functional Status Start: 11/17/24 08:11 Freq: NEEDED Status: Active Protocol: Document 11/17/24 08:53 MB (Rec: 11/17/24 09:42 MB [id number]) Medical Review Prior Functional Status Medical History Reviewed Yes Diet/Fluid Consistency Regular Communication Appears WNLs but pt's does provide some information such as answering date when PT asks pt Mobility and Gait I, previous stroke in 06/2023 and pt reports he had eye, cognitive, speech and LUE symptoms and no LLE symptoms, Activities of Daily Living and IADL's I Social History Household Members spouse Living Arrangements House Number of Floors (Floors) Two Floors Number of Stairs To Enter/Railing? No steps to enter and two half flights of steps with right rail ascend Home Environment High Toilet,Walk in Shower, Bidet Employment Status Retired M2 PT-IP Current Condition Start: 11/17/24 08:11 Freq: NEEDED Status: Active Protocol: Document 11/17/24 08:53 MB (Rec: 11/17/24 09:42 MB [id number]) Physical Therapy Current Condition Current Condition Evaluation Date 11/17/24 Treatment Diagnosis New LLE weakness with foot drop, possible stroke M3 PT-IP Subjective Start: 11/17/24 08:11 Freq: NEEDED Status: Active Protocol: Document 11/17/24 08:53 MB (Rec: 11/17/24 09:42 MB [id number]) Subjective Physical Therapy Visit Type Type Initial Evaluation Visit Start Time 08:53 Visit Stop Time 09:20 Number of ENVIR[employer]MENT[employer]ESTER Visits 0 Physical Therapy Visit Comments Patient Comments Pt and report that pt woke up last night and he couldn't get his left leg to work. Therapy Pain Assessment Pain When Pain Assessed At Rest Pain Present Pain Present Denied Pain M4 PT-IP Mobility and Gait Start: 11/17/24 08:11 Freq: NEEDED Status: Active Protocol: Document 11/17/24 08:53 MB (Rec: 11/17/24 09:42 MB [id number]) PT-Bed Mobility Assessment Rolling Type of Rolling Roll to Right Level of Assist Standby Assistance Supine to Sit Supine to Sit Standby Assistance Scooting Scooting to Edge of Bed Standby Assistance PT-Transfer Assessment Sit to and From Stand Sit to and from Stand Minimal Assistance Equipment Transfer Assistive Device Gait Belt,Saravanan Walker Transfers Transfer Destination Chair,Toilet Transfer Technique Ambulation Transfer Ability Level of Assist Minimal Assistance Comments Mobility Comments Cues for location, reaching back Gait Assessment Gait Gait Assistance Required: Minimum Assistance Distance (Feet) 15 Able to Maintain Weight Bearing Status Yes During Gait Assistive Devices Assistive Device Gait Belt,Saravanan Walker Orthotic/Prosthetic Devices or Brace: No Gait Deviations General Gait Pattern Decreased Stride Length, Decreased Feet Clearance, Lateral Trunk Lean,Step-to Gait,Wide Based Gait Factors Limiting Gait Function Factors Limiting Gait Function Abnormal Tonal Influences, Decreased Sensation,Decreased Strength,Incoordination, Limited Range of Motion,Poor Balance Comments Gait Comments Left foot drag but it is managed functionally with hemiwalker on the right and pt 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 PT-Balance Assessment Sitting Balance and Reactions Static Sitting Balance Ability Good Dynamic Sitting Balance Ability Good Standing Balance and Reactions Static Standing Balance Ability Fair Dynamic Standing Balance Ability Fair Device Used Right hemiwalker M5 PT-IP Objective Assessments Start: 11/17/24 08:11 Freq: NEEDED Status: Active Protocol: Document 11/17/24 08:53 MB (Rec: 11/17/24 09:42 MB [id number]) Orientation Orientation/Cognition Level of Alertness Alert Orientation Name,Birthday,Month,Year,Place ,Situation Language Function Ability No Deficits Noted Safety Awareness Decreased Safety Awareness Memory Description No Deficits Noted Gross Range of Motion Upper Extremity ROM Assessment Left Impaired Impairments Defer to OT, LUE weak and with decreased range with functional tasks today Lower Extremity ROM Assessment Left Impaired Impairments Left foot drop and no active movement, clonus with rapid passive DF, left knee extension and flexion AROM 50% normal and also decreased hip flexion in sitting Strength Lower Extremity Strength Assessment Left Impaired Hip 2/5 Knee 2/5 Ankle 0/0 Coordination Assessment Gross Coordination Gross Coordination Impaired Assessment Coordination Comments Pt cannot perform toe tapping or heel to oliver with LLE d/t profound weakness, right toe tapping is normal Sensation Assessment Sensation Gross Sensation Left LE Impaired Muscle Tone Muscle Tone WNL No Comments Muscle Tone Comments Increased PF tone and clonus with rapid passive DF left ankle M6 PT-IP Treatment Start: 11/17/24 08:11 Freq: NEEDED Status: Active Protocol: Document 11/17/24 08:53 MB (Rec: 11/17/24 10:23 MB [id number]) Physical Therapy Treatment Education Education Provided Safety Other Treatments Other Treatment Performed Discussion with pt and about d/c recommendations, ed pt on use of hemiwalker M7 PT-IP Assessment and Plan Start: 11/17/24 08:11 Freq: NEEDED Status: Active Protocol: Document 11/17/24 08:53 MB (Rec: 11/17/24 09:42 MB [id number]) PT Summary Assessment and Plan Potential Rehabilitation Potential Excellent Status of Condition at Evaluation Evolving Summary Impairments ROM,Strength,Balance, Coordination,Sensation,Tone, Cognition,Bed Mobility, Transfers,Gait,Activity Tolerance Progress Towards Goals Progressing Toward Goals Assessment Summary Pt is a 64 y/o male presenting with baseline I gait and he did not use an AD or have falls at baseline. He experienced stroke in 06/2023 and he and report visual, cognitive and LUE symptoms at that time but no LLE symptoms . He awoke last night and could not use his LLE and he presents with profound weakness with AROM, MMT and functional mobility LLE today. Pt requires cues and assistance for transfers and use of right hemiwalker for short gait on assessment. Given pt's I baseline mobility and good ability to follow commands and desire to maximize return to PLOF, recommend acute rehab at d/c. Of note, pt reports LUE numbness after sitting today that is not present with hook lying. He reports he is seeing a chiropractor for a neck issue. PT speaks with MD about possible cervical spine work- up if brain MRI is negative. Pt's functional presentation in LLE does appear neurological in nature this date. Goals Bed Mobility Goal Independent Transfer Goal Independent,Cane Gait Goal Independent,Cane Gait Distance 100 Other Goals Will focus on balance activities with gait rather than increasing gait distance to include I with AD: turning, backwards walking, walking with EC. Pt will perform WNLs on a standardized balance test to decrease fall risk. Pt will ascend and descend 9 steps with right rail ascend and cane as needed and no more than superv to allow safe home mobility. Days to Meet Goals 5 Frequency of Treatment Frequency Of Treatment Once a Day Other frequency x1 Treatment Plan Physical Therapy Treatment Plan Bed Mobility Training,Transfer Training,Gait Training, Therapeutic Exercise,Balance Retraining,Discharge Planning, Hot or Cold Pack,Neuromuscular Re-ed,Coordination Retraining ,Manual Therapy Precautions Other Precautions Fall risk, LLE weakness Recommendations To Nursing Amount of Assist Needed 1 Person Assist Discharge Recommendations PT Discharge Recommendations Acute Rehab Transportation Needs at Discharge Private Vehicle
--- NOTE | 2024-11-17 12:00 | OT.IP.EVAL ---
Current Diagnoses Transient cerebral ischemic attack, unspecified (11/17/24) Cerebral infarction, unspecified (11/17/24) Occupational Therapy Inpatient Evaluation/Re-Eval M1 PT/OT-IP Prior Functional Status Start: 11/17/24 08:11 Freq: NEEDED Status: Active Protocol: Document 11/17/24 08:53 [facility] (Rec: 11/17/24 09:42 [facility] [id number]) Medical Review Prior Functional Status Medical History Reviewed Yes Diet/Fluid Consistency Regular Communication Appears WNLs but pt's does provide some information such as answering date when PT asks pt Mobility and Gait I, previous stroke in 06/2023 and pt reports he had eye, cognitive, speech and LUE symptoms and no LLE symptoms, Activities of Daily Living and IADL's I Social History Household Members spouse Living Arrangements House Number of Floors (Floors) Two Floors Number of Stairs To Enter/Railing? No steps to enter and two half flights of steps with right rail ascend Home Environment High Toilet,Walk in Shower, Bidet Employment Status Retired M1 PT/OT-IP Prior Functional Status Start: 11/17/24 13:07 Freq: NEEDED Status: Active Protocol: Document 11/17/24 13:07 [facility] (Rec: 11/17/24 13:32 [facility] [id number]) Medical Review Prior Functional Status Medical History Reviewed Yes Diet/Fluid Consistency Regular Communication Appears WNLs but pt's does provide some information such as answering date when PT asks pt Mobility and Gait I, previous stroke in 06/2023 and pt reports he had eye, cognitive, speech and LUE symptoms and no LLE symptoms, Activities of Daily Living and IADL's I Social History Household Members spouse Living Arrangements House Number of Floors (Floors) Two Floors Number of Stairs To Enter/Railing? No steps to enter and two half flights of steps with right rail ascend and 1/2 wall on the left side Home Environment High Toilet,Walk in Shower, Bidet Employment Status Retired Additional Social History Comment Liana frederick M2 OT-IP Current Condition Start: 11/17/24 13:07 Freq: Status: Active Protocol: Document 11/17/24 13:07 [facility] (Rec: 11/17/24 13:32 [facility] [id number]) Occupational Therapy Current Condition Current Condition Evaluation Date 11/17/24 Treatment Diagnosis CVA Diagnosis Onset Date 11/17/24 M3 OT- IP Subjective and Pain Start: 11/17/24 13:07 Freq: Status: Active Protocol: Document 11/17/24 13:07 [facility] (Rec: 11/17/24 13:32 [facility] [id number]) OT- Subjective Occupational Therapy Visit Type Type Initial Evaluation Visit Start Time 11:15 Visit Stop Time 12:00 Occupational Therapy Visit Comments Patient Comments Pt agreed to do OT eval. Patient/Caregiver Goals TO get better OT Pain Assessment Pain When Pain Assessed During Mobility Pain Present Pain Present Pain Reported Location Left Arm Description Aching Management Techniques Re-positioning M4 OT- IP ADL's Start: 11/17/24 13:07 Freq: Status: Active Protocol: Document 11/17/24 13:07 [facility] (Rec: 11/17/24 13:32 [facility] [id number]) OT [id number] Comments OT Self-Feeding Comments Not at meal time. Pt will need assist for set-up for smaller items due to decreased FMS with left hand. OT ADL-Grooming Comments OT Grooming Comments Not performed. OT ADL-Oral Care Comments Oral Care Comments Not performed. OT ADL-Dressing General Eval Lower Body Dressing Ability Maximum Assistance Areas Needing Assistance Socks Comments OT Dressing Comments Pt use of right hand 80% to assist for socks and left hand decreased operations officer trust department and control to assist at this time. OT ADL-Toileting Comments OT Toileting Comments At this time, best to use the urinal or BSC , due to decreased control of LLE, foot drop and that his left knee hyperextends due to weakness. OT ADL-Bathing Comments OT Bathing Comments Pt will benefit from a shower chair at this time. Use of rolling shower chair safer at this time due to decreased mobility. M5 OT- IP IADL's Start: 11/17/24 13:07 Freq: Status: Active Protocol: Document 11/17/24 13:07 [facility] (Rec: 11/17/24 13:32 [facility] [id number]) OT-Instrumental Activities of Daily Living Deficits IADL Deficits Identified Deficits Home Safety Awareness Awareness of Need for Assistance at Home Good Awareness Home Safety Comments TO assess more. Medication Management Medication Management Caregiver Provides Supervision Medication Management Comments Pt'w states lately has had to assist pt for med set- up due to decreased coordination of LUE. Money Management Money Management Comments Pt state needing time and tend to recheck his work when it comes to doing any math. Pt would benefit from supervision . Meal Preparation Meal Preparation Caregiver Provides Assist [employer] Manager [employer] Manager Caregiver Provides Assist Driving Driving Concerns Identified Regarding Safety Driving Comments Pt states still drives short distances but seldom. M6 OT- IP Functional Cognition Start: 11/17/24 13:07 Freq: Status: Active Protocol: Document 11/17/24 13:07 [facility] (Rec: 11/17/24 13:32 [facility] [id number]) Cognitive Factors Limiting Selfcare Function Cognitive Ability Level of Alertness Alert Patient Orientation Name,Age,Birthday,Month,Date, Year,Day of Week,Place, Situation Attention Span Ability Capable of Focused Attention, Capable of Sustained Attention Ability to Follow Commands Able to Follow One Step Commands Memory Description Short Term Impaired Safety Awareness Underestimates Need for Assistance Problem Solving Ability Needs Assist to Identify Solutions Executive Function Ability Unable to Remember Details Cognitive Tests SLUMS Pt scored 22/30 versus 25/30 from Jun 2023 when pt had CVA . Pt this time score implies mild neurocognitive deficits. Pt able to recall 2/5 objects , not able to draw the numbers of the clock and initially missing the number 12 and then 2. Cognitive Comments Cognitive Assessment Comments Pt scored 190 seconds on [place] Making Part B which implies severe impairment for visual attention, mental flexibility, executive functioning, task switching, and problem solving . Pt score from last CVA 210 seconds. OT- Vision and Hearing OT- Hearing Assessment OT- Hearing Assessment WFL OT- Vision Assessment Visual Acuity Glasses For Reading Visual Attentiveness WFL Occular Pursuits WFL Visual Convergence WFL Visual [place] WFL M7 OT- IP Mobility and Balance Start: 11/17/24 13:07 Freq: Status: Active Protocol: Document 11/17/24 13:07 [facility] (Rec: 11/17/24 13:32 [facility] [id number]) OT-Transfer Assessment Sit to and From Stand Sit to and from Stand Moderate Assistance Transfers Transfer Ability Maximum Assistance Technique Transfer Destination Chair Transfer Technique Stand Step Pivot Devices Transfer Assistive Devices Gait Belt,Saravanan Walker Comments Mobility Comments Pt MODA to stand to the saravanan- walker and able to take a few steps forward but tend to move his left leg via hip hiking due to left foot drop and overall weakness to LLE. Having to block the LLE from buckling. At this time if having to use the bathroom, use of BSC and 1-2 person assist. Transfer to the right. OT- Balance Assessment Sitting Balance and Reactions Static Sitting Balance Ability Normal Dynamic Sitting Balance Ability Good Standing Balance and Reactions Static Standing Balance Ability Poor Dynamic Standing Balance Ability Poor M8 OT- IP Objective Assessments Start: 11/17/24 13:07 Freq: Status: Active Protocol: Document 11/17/24 13:07 [facility] (Rec: 11/17/24 13:32 [facility] [id number]) OT Gross Range of Motion Upper Extremity Range of Motion Assessment Left Impaired ROM Impairments Difficulty to close his left hand and limited at end ROM. Pt tends to do left shoulder abduction versus shoulder flexion due to weakness and pain. OT Strength Upper Extremity Strength Assessment Left Impaired OT- Coordination Assessment Upper Extremity Finger to Nose Test Left UE Impaired Finger Tapping Test Left UE Impaired Comments Coordination Comments Decreased for smoothness of movement and accuracy. OT-Muscle Tone Assessment Comments Muscle Tone Comments Slight increased tone in the LUE OT Sensation Assessment Comments Summary Comments Decreased kinesthesia for RUE at wrist. M9 OT- IP Assessment and Plan Start: 11/17/24 13:07 Freq: Status: Active Protocol: Document 11/17/24 13:07 [facility] (Rec: 11/17/24 13:32 [facility] [id number]) OT Summary Assessment and Plan Potential Rehabilitation Potential Good Analytic Complexity at Evaluation Moderate Summary OT Impairments Pain,Range of Motion,Strength, Balance,Functional Cognition, Functional Mobility,Self- Feeding,Grooming,Dressing, Toileting,Bathing,Toilet Transfers,Shower Transfers, Activity Tolerance Progress Towards Goals Slow Progress due to Pain,Slow Progress due to Medical Issues Assessment Summary Pt MOD complexity and here due to CVA and had another CVA 2022. Pt deficits are LUE weakness, coordination, neglect, and smoothness of movements. LLE weakness and foot drop. Pt is very motivated to get better and would be a good candidate for acute rehab. Goals Self-Feeding Goal Independent Grooming Goal Independent Dressing Goal Independent Toileting Goal Independent Bathing Goal Independent Toilet Transfer Goal Independent Shower Transfer Goal Independent OT-Other Goals Goals base on efficient and smooth movement of LUE. Days to Meet Goals 30 Frequency of Treatment Other frequency 5x/week Treatment Plan OT Treatment Plan ADL Training,Functional Cognition Training,Functional Mobility,Patient/Family Education,Discharge Planning Other Treatment Recommendations and Next Standing ADL's with recliner Treatment Focus behind pt . Discharge Recommendations OT Discharge Recommendations Acute Rehab Transportation Needs at Discharge Private Vehicle,Wheelchair/ Cabulance
[2024-11-17] MEDS: INSULIN REGULAR 100 UNIT/ML 3 ML VIAL SUBCUT (12:31)
--- NOTE | 2024-11-17 12:45 | PM.HP.1 ---
History of Present Illness History of Present Illness Date Patient Seen: 11/17/24 Time Patient Seen: 12:46 Chief complaint: thinks he had a stroke Narrative: From night doctor: Miguel Gooden is a 64 y/o male, with history of Obesity (BMI 38.5)DM 2 on Metformin, HTN, on anti HTN sive meds, Current everyday cig smoker, Ischemic stroke with hemorrhagic transformation (admitted 07/08/23) , with LLE weakness and parasthesias, and LUE weakness, and Left foot drag sec to R sided Stroke , MRI brain 07.09.2023: which showed: 1. Large cortical and subcortical subacute infarct involving the right posterior parietal, posterior temporal, and occipital lobes with associated cortical hemorrhagic conversion and laminar necrosis. 2. Additional small punctate subacute infarcts in the right frontal, parietal, and temporal lobes. Given the distribution within the anterior and posterior circulation, the findings suggest sequelae of right-sided embolic phenomenon. He notes stuttering left lower leg symptoms of weakness for the past several weeks and then an acute episode yesterday with sustained weakness of the foot and ankle. He also had buckling of his lower leg at the knee. Has a history of previous stroke affecting left arm and face. He also has a history of taking chronic aspirin and statin. He was hypertension and diabetes as well. He has been extremely physically active with a remodel and a recent reconstruction as well as a demo I have his kitchen and a current kitchen remodel. He lives in [place]. [facility] Social History household members: spouse Smoking Status: Current every day smoker alcohol intake: current Meds Home Medications and Allergies Home Medications Medication Instructions Recorded Confirmed Type amlodipine 10 mg tablet 10 mg PO DAILY 07/08/23 11/17/24 History valsartan 160 mg tablet 160 mg PO DAILY 07/08/23 11/17/24 History aspirin 325 mg tablet,delayed 325 mg PO DAILY #90 tabs 07/09/23 11/17/24 Rx release atorvastatin 80 mg tablet 80 mg PO BEDTIME #90 tabs 07/09/23 11/17/24 Rx metformin 500 mg tablet 500 mg PO BIDWMEAL #60 tabs 07/09/23 11/17/24 Rx tamsulosin 0.4 mg capsule 0.8 mg PO DAILY 11/17/24 11/17/24 History Allergies Allergy/AdvReac Type Severity Reaction Status Date / Time No Known Drug Allergies Allergy Verified 07/08/23 23:40 Review of Systems Review of Systems Narrative: All else reviewed and otherwise unremarkable except as noted in the history and physical. Exam Vital Signs (past 8 hours): - 11/17/24 05:00 11/17/24 05:00 11/17/24 05:30 Temperature Pulse Rate 89 Respiratory Rate Blood Pressure 151/71 H 138/65 Pulse Oximetry 95 Oxygen Delivery Method Oxygen Flow Rate 11/17/24 05:30 11/17/24 06:00 11/17/24 06:10 Temperature Pulse Rate 82 83 86 Respiratory Rate 18 Blood Pressure Pulse Oximetry 96 95 97 Oxygen Delivery Method Oxygen Flow Rate 11/17/24 06:10 11/17/24 06:30 11/17/24 06:30 Temperature Pulse Rate 91 H Respiratory Rate Blood Pressure 131/65 152/70 H Pulse Oximetry 97 Oxygen Delivery Method Room Air Oxygen Flow Rate 11/17/24 07:00 11/17/24 07:00 11/17/24 07:30 Temperature Pulse Rate 84 85 Respiratory Rate 18 17 Blood Pressure 141/73 H Pulse Oximetry 96 96 Oxygen Delivery Method Oxygen Flow Rate 11/17/24 07:30 11/17/24 08:00 11/17/24 08:00 Temperature Pulse Rate 79 Respiratory Rate 18 Blood Pressure 136/69 139/70 Pulse Oximetry 96 Oxygen Delivery Method Oxygen Flow Rate 11/17/24 08:44 11/17/24 08:48 11/17/24 12:00 Temperature 97.6 F 97.7 F Pulse Rate 85 86 Respiratory Rate 18 19 Blood Pressure 158/84 H 136/89 Pulse Oximetry 96 97 98 Oxygen Delivery Method Room Air Oxygen Flow Rate 0 0 0 11/17/24 12:00 Temperature Pulse Rate Respiratory Rate Blood Pressure Pulse Oximetry 97 Oxygen Delivery Method Room Air Oxygen Flow Rate 0 Oxygen Delivery Method Room Air Oxygen Flow Rate 0 Narrative Exam Narrative: NAD, alert and oriented, fluent speech, mildly distressed. Normocephalic skull, EOMI, anicteric sclera, symmetric pupils. Oropharynx unremarkable, no droop. Neck supple, midline trachea, no adenopathy. Lungs clear, normal rate and effort. Heart regular, no murmur gallop or rub. Abdomen is soft, non distended and non tender. Extremities are free of edema. Skin is free of rash or lesions. Joints are not swollen or deformed. Judgment appears to be normal. Emotionally labile with frequent episodes of crying. Neuro: Left upper eyelid ptosis, mild left facial droop. Left arm is weak compared to the right but he was able to have a normal range of motion throughout. Left leg is weak with inability to move at the ankle at all or wiggle toes. He can extend at the knee against gravity. Objective ECG Impression: Normal sinus rhythm Left axis deviation Pulmonary disease pattern Septal infarct , age undetermined Cannot rule out Inferior infarct , age undetermined Imaging MRI - head: Radiologist's impression: 1. Moderately large old posterior right MCA distribution infarct with encephalomalacia. 2. Multiple small areas of acute infarct, also in the MCA distribution. Labs 11/17/24 04:03 11/17/24 04:03 Labs: Laboratory Results - last 24 hr 11/17/24 11/17/24 11/17/24 04:03 04:23 06:10 WBC 10.3 RBC 5.24 Hgb 15.2 Hct 45.8 MCV 87.4 MCH 29.1 MCHC 33.3 RDW 13.8 Plt Count 191 Neut % (Auto) 74.4 Lymph % (Auto) 16.9 L [place] % (Auto) 5.9 Eos % (Auto) 2.0 Baso % (Auto) 0.8 Neut # (Auto) 7600 H Lymph # (Auto) 1700 [place] # (Auto) 600 Eos # (Auto) 200 Baso # (Auto) 100 PT 10.0 INR 0.9 APTT 22 L Sodium 139 Potassium 4.5 Chloride 109 H Carbon Dioxide 20 L BUN 21 H Creatinine 0.94 Estimated GFR > 60 BUN/Creatinine Ratio 22.3 H Glucose 172 H Calcium 9.2 Total Bilirubin 0.4 AST 31 ALT 43 Alkaline Phosphatase 64 Total Creatine Kinase 183 H Troponin I < 0.012 Total Protein 7.1 Albumin 4.3 Globulin 2.8 Albumin/Globulin Ratio 1.5 Urine Color Yellow Urine Appearance Clear Urine pH 5.5 Ur Specific [place] 1.020 Urine Protein Negative Urine Glucose (UA) Negative Urine Ketones Negative Urine Occult Blood Negative Urine Nitrate Negative Urine Bilirubin Negative Urine Urobilinogen 0.2 Ur Leukocyte Esterase Negative Urine RBC None seen Urine WBC None seen Ur Squamous Epith Cells 0-1 /hpf Urine Bacteria None seen Ur Culture Indicated? Cult not indicated Vol Urine Centrifuged 10ml (spun) U Opiates 300ng/mL cut Negative Ur Oxycodone Screen Negative Urine Methadone Screen Negative Ur Barbiturates Screen Negative U Tricyclic Antidepress Negative Ur Phencyclidine Scrn Negative Ur Amphetamines Screen Negative U Methamphetamines Scrn Negative Ur MDMA Scrn (Ecstasy) Negative U Benzodiazepines Scrn Negative Urine Cocaine Screen Negative U Marijuana (THC) Screen Negative Urine Specific [place] Ethyl Alcohol < 10 Ur Creatinine SARS-CoV-2 (PCR) Negative 11/17/24 06:10 WBC RBC Hgb Hct MCV MCH MCHC RDW Plt Count Neut % (Auto) Lymph % (Auto) [place] % (Auto) Eos % (Auto) Baso % (Auto) Neut # (Auto) Lymph # (Auto) [place] # (Auto) Eos # (Auto) Baso # (Auto) PT INR APTT Sodium Potassium Chloride Carbon Dioxide BUN Creatinine Estimated GFR BUN/Creatinine Ratio Glucose Calcium Total Bilirubin AST ALT Alkaline Phosphatase Total Creatine Kinase Troponin I Total Protein Albumin Globulin Albumin/Globulin Ratio Urine Color Urine Appearance Urine pH Normal Ur Specific [place] Urine Protein Urine Glucose (UA) Urine Ketones Urine Occult Blood Urine Nitrate Urine Bilirubin Urine Urobilinogen Ur Leukocyte Esterase Urine RBC Urine WBC Ur Squamous Epith Cells Urine Bacteria Ur Culture Indicated? Vol Urine Centrifuged U Opiates 300ng/mL cut Ur Oxycodone Screen Urine Methadone Screen Ur Barbiturates Screen U Tricyclic Antidepress Ur Phencyclidine Scrn Ur Amphetamines Screen U Methamphetamines Scrn Ur MDMA Scrn (Ecstasy) U Benzodiazepines Scrn Urine Cocaine Screen U Marijuana (THC) Screen Urine Specific [place] Normal Ethyl Alcohol Ur Creatinine Normal SARS-CoV-2 (PCR) Assessment & Plan Assessment & Plan narrative: 1/Recurrent stroke : Neuro deficits NIHSS at 2 , Left dorsiflexion is weak, with gait disturbance and continuing tingling sensation in LUE, in patient with h/o Right sided Ischemic Stroke with small petechial hge ( R Parieto occipital area), CT head Negative for bleed. CTA head and neck : Vertebral A and ICA narrowing / non critical Pt has been taking his ASA 325 mg daily, as well as his high dose statin Atorvastatin 80 mg daily As above Neurology consulted per ED, and advises MRI brain and continuation of ASA at 325 mg daily and high dose Statin ( continue Atorvastatin) at 80 mg daily / and allow Permissive HTN MRI Brain result shall determine : to add Plavix or not and other recommendations. MRI Brain result when becomes available to be discussed with Neurologist. by Day Hospitalist. Neuro checks PT/OT evaluation Echo Cardiac monitoring Fall Precautions 2/ Current Cig smoker: As above , pt understands hazardous effects on health sec to continuing to smoke. He shall make all efforts to quit the habit. He agrees to nicotine patch 3/HTN , has been taking his anti HTN meds at home. Initial BPs elevated. Repeat improved. Allow Permissive HTN / Keep SBP > 140 4/ HLD see above Continue Atorvastatin high dose 5/DM 2 not well controlled/ has Hyperglycemia BG 172, . Accu check AC/ HS . Reg Insulin per Sliding scale. Hol;d Metformin during Hospital stay Check Hb A1C 6/ Obesity class 2, BMI not at goal / Continue Life style modifications PLAN: Continue aspirin, and statin. We will likely benefit from dual antiplatelet therapy for 21 days. Needs modifications in terms of cigarette smoking, tighter diabetic control and monitoring of blood pressures. He will likely be suitable for discharge to inpatient rehab. [facility]: 11/18, inpatient rehab. Time-Based Coding :: [TOTAL MINUTES] spent with patient and on the chart (including review of chart, obtaining history, exam, reviewing outside data, placing orders, documenting exam and treatment plan, and counseling patient) on [DATE].
--- NOTE | 2024-11-17 13:26 | CM.DANOTE ---
Discharge Planning/Care Management CM Discharge Assessment Start: 11/17/24 13:19 Freq: Status: Active Protocol: Document 11/17/24 13:19 [email or web address] (Rec: 11/17/24 13:25 [facility] [id number]) Discharge Planning Assessment Assigned Elder Assistant Rico Cohen RN Advance Directives? No Advance Directives on File No History Provided By Patient,Family Member,Medical Record Expected Length of Stay 2 Has Patient been admitted in last 30 No days? Prior Living Arrangements House Household Members spouse,children Comment Patient lives at home with spouse and daughter. Type of transporation used prior to Drives own vehicle admit Comment Patient's spouse and daughter are able to help with transportation during recovery . Independent with ADL's Yes Is patient alert and oriented? Yes Comment No assistance was needed before hospitalization. Caregiver for Another No Comment None Comment None Patient/Family Preference OP OT Therapy,OP SHIPFITTER HELPER Therapy Comment Acute Rehab, [facility] preferred by Dr Robertson. Patient has agreed with this option. Barriers to Discharge No Discharge Plan Inpatient Rehab Unit Transportation Arrangement Spouse will drive private vehicle Referrals Initiated Other Additional Comment Sending referral to [facility] acute Rehab now. Whiteboard Updated in Patient Room with Yes name and ext. # of Elder Assistant Review Status In Process Please Provide Date Initial DC 11/17/24 Assessment Was Performed
--- NOTE | 2024-11-17 13:26 | CM.DANOTE ---
Initial DCP Assessment Visit Note Reviewed EMR and team rounds for patient's medical status and updates. Met with patient at bedside to introduce self and role. Patient was found to be alert and oriented. Patient was friendly and cooperative during our conversation. Patient lives in his own home with his spouse and daughter. He was fully independent with self care and ADLs prior to this hospitalization. He had not been using any DME devices prior to hospitalization. Patient self transported prior to hospitalization. Patient's and daughter are able to transport the patient during his recovery. Current plan is for the patient to discharge to [facility] tomorrow. Patient has agreed with this plan. Referral sent to today. Payor: [facility] PCP: Néstor Redd Patient is a 64 year old male who came to the ER today 11/17/24 to be assessed for worsening left sided weakness. Patient has a history of a stroke 1-2 years ago that had caused lasting and mild left weakness. Patient is a daily smoker and has type 2 diabetes. At ER patient had CT scans that showed a stroke was likely. Brain MRI today showed multiple small areas of acute infarct. PT has recommended acute rehab. Patient feels motivated to take the approriate steps toward recovering from this. He is going to attempt to stop smoking. He has agreed to go to acute rehab. Patient is in the middle of remodeling his house and he feels strongly that he would like to get back to that project as soon as he is able. DCP will continue to monitor for any evolving needs in relation to discharging to [facility]. Discharge Planning/Care Management CM Discharge Assessment Start: 11/17/24 13:19 Freq: Status: Active Protocol: Document 11/17/24 13:19 SANDRA (Rec: 11/17/24 13:25 SANDRA [id number]) Discharge Planning Assessment Assigned [employer] Rico Cohen RN Advance Directives? No Advance Directives on File No History Provided By Patient,Family Member,Medical Record Expected Length of Stay 2 Has Patient been admitted in last 30 No days? Prior Living Arrangements House Household Members spouse,children Comment Patient lives at home with spouse and daughter. Type of transporation used prior to Drives own vehicle admit Comment Patient's spouse and daughter are able to help with transportation during recovery . Independent with ADL's Yes Is patient alert and oriented? Yes Comment No assistance was needed before hospitalization. Caregiver for Another No Comment None Comment None Patient/Family Preference OP OT Therapy,OP SCREEN TACKER Therapy Comment Acute Rehab, [facility] preferred by Dr Robertson. Patient has agreed with this option. Barriers to Discharge No Discharge Plan Inpatient Rehab Unit Transportation Arrangement Spouse will drive private vehicle Referrals Initiated Other Additional Comment Sending referral to [facility] acute Rehab now. Whiteboard Updated in Patient Room with Yes name and ext. # of [employer] Review Status In Process Please Provide Date Initial DC 11/17/24 Assessment Was Performed
[2024-11-17] MEDS: NICOTINE 14 PATCH 14 MG TOP (16:18)
--- NOTE | 2024-11-17 18:34 | P.PN_ITS ---
<Statement entered by Hina Fields MD - 11/19/24 17:38> chart opened in [facility]
[2024-11-17] MEDS: CLOPIDOGREL 75 MG TABLET 300 MG PO (18:39)
[2024-11-17 20:57] LABS: Cholesterol 124 mg/dL (140-199); HDL Cholesterol 27 mg/dL (40-60); LDL Cholesterol Calculated 59 mg/dL (<100); Triglycerides 192 mg/dL (35-150)
[2024-11-18] VITALS: BP 162/90; PULSE 104; RESP 18; TEMP 36.6; O2SAT 97
[2024-11-18 04:00] VITALS: BP 161/98; PULSE 94; RESP 18; TEMP 36.2; O2SAT 97; O2SAT 98
--- NOTE | 2024-11-18 05:04 | PC.NURSE ---
mini shifter Pt only questions were 1) wants to know his blood type prior to discharge 2) if he gets discharged to home, will that effect his priority to get in to a rehab/SNF.
[2024-11-18 08:00] VITALS: BP 136/78; PULSE 85; RESP 18; TEMP 36.4; O2SAT 95; O2SAT 97
[2024-11-18] MEDS: ASPIRIN EC 81 MG TABLET PO (08:20)
[2024-11-18] MEDS: CLOPIDOGREL 75 MG TABLET PO (08:21)
[2024-11-18] MEDS: TAMSULOSIN 0.4 MG CAPSULE 0.8 MG PO (08:21)
[2024-11-18] MEDS: NICOTINE 14 PATCH 14 MG TOP (08:21)
[2024-11-18] MEDS: INSULIN LISPRO 100 UNIT/ML 3ML VIAL SUBCUT ×2 (08:24→11:55)
--- NOTE | 2024-11-18 08:58 | PT.IPTN ---
Current Diagnoses Transient cerebral ischemic attack, unspecified (11/17/24) Cerebral infarction, unspecified (11/17/24) Physical Therapy Treatment Note M2 PT-IP Current Condition Start: 11/17/24 08:11 Freq: NEEDED Status: Active Protocol: Document 11/18/24 08:42 SP (Rec: 11/18/24 10:50 SP [id number]) Physical Therapy Current Condition Current Condition Evaluation Date 11/17/24 Treatment Diagnosis New LLE weakness with foot drop, possible stroke M3 PT-IP Subjective Start: 11/17/24 08:11 Freq: NEEDED Status: Active Protocol: Document 11/18/24 08:42 SP (Rec: 11/18/24 10:50 SP [id number]) Subjective Physical Therapy Visit Type Type Treatment Note Visit Start Time 08:42 Visit Stop Time 08:58 Notes in room during tx, observed only. Number of EARTH SCIENCES PROFESSOR Visits 1 Physical Therapy Visit Comments Patient Comments Pt up in chair agreeable to working with EARTH SCIENCES PROFESSOR. Therapy Pain Assessment Pain When Pain Assessed During Mobility Pain Present Pain Present Denied Pain M4 PT-IP Mobility and Gait Start: 11/17/24 08:11 Freq: NEEDED Status: Active Protocol: Document 11/18/24 08:42 SP (Rec: 11/18/24 10:50 SP [id number]) PT-Transfer Assessment Sit to and From Stand Sit to and from Stand Contact Guard Assistance, Minimal Assistance,1 Person Assistance,Use of Upper Extremities Equipment Transfer Assistive Device Gait Belt,Front Wheeled Walker Orthotic/Prosthetic Devices or Brace: No Transfers Transfer Destination Chair Transfer Technique Pt ambulated with FWW Transfer Ability Level of Assist Contact Guard Assistance, Minimal Assistance,1 Person Assistance,Use of Upper Extremities Comments Mobility Comments Pt completed sit>stand with cues for pushing from chair Min A x1 then to FWW. Gait around room /c FWW CG/MIn A x1 to door and back to chair x2 laps, noted trunk sway R at times when L foot caught floor , he is not able to DF foot foot drop, cues for slower pacing with L hip and knee flexion for safety advancement each LLE stepping while keeping BLEs inside FWW during turns. CUes for backing up BLE and FWW fully to chair then reaching back BUEs to slow descend into chair. Pt tends to forget 2nd hand to chair and quick descend to sit while LUE tipping bringing FWW back toward him. Pt would benefit from Acute Rehab for progression strength and improve LLE clearance during advancement and increased trunk stability during mobility. Unsafe to complete stairs at this time, has 1/2 flight stairs once in on main floor home to get to another level. He was seated in chair, had call light and all needs in reach before left room. in room when left. REcommending Nursing continue gait with pt in room. Gait Assessment Gait Gait Assistance Required: Contact Guard Assist,Minimum Assistance,1 Person Assist Distance (Feet) 60 Able to Maintain Weight Bearing Status Yes During Gait Assistive Devices Assistive Device Gait Belt,Front Wheeled Walker Orthotic/Prosthetic Devices or Brace: No Gait Deviations General Gait Pattern Antalgic,Decreased Stride Length,Decreased Feet Clearance,Lateral Trunk Lean, Step-to Gait,Wide Based Gait Factors Limiting Gait Function Factors Limiting Gait Function Decreased Sensation,Decreased Strength,Incoordination, Limited Range of Motion,Poor Balance,Poor Safety Awareness Comments Gait Comments P Stair Climbing Assessment Comments Stair Climbing Comments unable to assess at this time PT-Balance Assessment Sitting Balance and Reactions Static Sitting Balance Ability Normal Dynamic Sitting Balance Ability Good Standing Balance and Reactions Static Standing Balance Ability Good Dynamic Standing Balance Ability Fair Device Used FWW M5 PT-IP Objective Assessments Start: 11/17/24 08:11 Freq: NEEDED Status: Active Protocol: Document 11/17/24 08:53 MB (Rec: 11/17/24 09:42 MB [id number]) Orientation Orientation/Cognition Level of Alertness Alert Orientation Name,Birthday,Month,Year,Place ,Situation Language Function Ability No Deficits Noted Safety Awareness Decreased Safety Awareness Memory Description No Deficits Noted Gross Range of Motion Upper Extremity ROM Assessment Left Impaired Impairments Defer to OT, LUE weak and with decreased range with functional tasks today Lower Extremity ROM Assessment Left Impaired Impairments Left foot drop and no active movement, clonus with rapid passive DF, left knee extension and flexion AROM 50% normal and also decreased hip flexion in sitting Strength Lower Extremity Strength Assessment Left Impaired Hip 2/5 Knee 2/5 Ankle 0/0 Coordination Assessment Gross Coordination Gross Coordination Impaired Assessment Coordination Comments Pt cannot perform toe tapping or heel to oliver with LLE d/t profound weakness, right toe tapping is normal Sensation Assessment Sensation Gross Sensation Left LE Impaired Muscle Tone Muscle Tone WNL No Comments Muscle Tone Comments Increased PF tone and clonus with rapid passive DF left ankle M6 PT-IP Treatment Start: 11/17/24 08:11 Freq: NEEDED Status: Active Protocol: Document 11/18/24 08:42 SP (Rec: 11/18/24 10:50 SP [id number]) Physical Therapy Treatment Education Education Provided Safety Other Treatments Other Treatment Performed Discussion with pt and about d/c recommendations, ed pt on use of FWW M7 PT-IP Assessment and Plan Start: 11/17/24 08:11 Freq: NEEDED Status: Active Protocol: Document 11/18/24 08:42 SP (Rec: 11/18/24 10:50 SP [id number]) PT Summary Assessment and Plan Potential Rehabilitation Potential Excellent Status of Condition at Evaluation Evolving Summary Impairments ROM,Strength,Balance, Coordination,Sensation,Tone, Cognition,Bed Mobility, Transfers,Gait,Activity Tolerance Progress Towards Goals Progressing Toward Goals Assessment Summary Pt is a 64 y/o male presenting with baseline I, Min A x1 STS and CG/ Min A x1 /c progression using FWW gait around room approx 60 ft, demonstrates foot drop on L but more stable knee TKE today , trunk Lean R during LLE advancement added support required. Pt would benefit from Acute Rehab for progression strength and improve LLE clearance during advancement and increased trunk stability during mobility. Unsafe to complete stairs at this time, has 1/2 flight stairs once in on main floor home to get to another level. Will continue to assess progress. Goals Bed Mobility Goal Independent Transfer Goal Independent,Cane Gait Goal Independent,Cane Gait Distance 100 Other Goals Will focus on balance activities with gait rather than increasing gait distance to include I with AD: turning, backwards walking, walking with EC. Pt will perform WNLs on a standardized balance test to decrease fall risk. Pt will ascend and descend 9 steps with right rail ascend and cane as needed and no more than superv to allow safe home mobility. Days to Meet Goals 5 Frequency of Treatment Frequency Of Treatment Once a Day Other frequency x1 person Treatment Plan Physical Therapy Treatment Plan Bed Mobility Training,Transfer Training,Gait Training, Therapeutic Exercise,Balance Retraining,Discharge Planning, Hot or Cold Pack,Neuromuscular Re-ed,Coordination Retraining ,Manual Therapy Other Recommendations and Next Treatment gait/c FWW, dynamic gait if Focus able, safet strategy transfers , stair mgt when safe. Precautions Other Precautions Fall risk, LLE weakness Recommendations To Nursing Amount of Assist Needed 1 Person Assist Discharge Recommendations PT Discharge Recommendations Acute Rehab Transportation Needs at Discharge Private Vehicle
--- NOTE | 2024-11-18 10:56 | P.DS_ITS ---
History of Present Illness History of Present Illness Chief complaint: thinks he had a stroke Narrative: From night doctor: Miguel Gooden is a 64 y/o male, with history of Obesity (BMI 38.5)DM 2 on Metformin, HTN, on anti HTN sive meds, Current everyday cig smoker, Ischemic stroke with hemorrhagic transformation (admitted 07/08/23) , with LLE weakness and parasthesias, and LUE weakness, and Left foot drag sec to R sided Stroke , MRI brain 07.09.2023: which showed: 1. Large cortical and subcortical subacute infarct involving the right posterior parietal, posterior temporal, and occipital lobes with associated cortical hemorrhagic conversion and laminar necrosis. 2. Additional small punctate subacute infarcts in the right frontal, parietal, and temporal lobes. Given the distribution within the anterior and posterior circulation, the findings suggest sequelae of right-sided embolic phenomenon. He notes stuttering left lower leg symptoms of weakness for the past several weeks and then an acute episode yesterday with sustained weakness of the foot and ankle. He also had buckling of his lower leg at the knee. Has a history of previous stroke affecting left arm and face. He also has a history of taking chronic aspirin and statin. He was hypertension and diabetes as well. He has been extremely physically active with a remodel and a recent reconstruction as well as a demo I have his kitchen and a current kitchen remodel. He lives in [place]. Discharge Providers Provider Date of admission: 11/17/24 06:02 Discharge Date: 11/18/24 Primary care physician: Néstor Redd MD Consults: 11/17/24 07:59 Consult to Occupational Therapy Evaluate & Treat Comment: Physician Instructions: Evaluate and treat Consult to Physical Therapy Evaluate & Treat Comment: Physician Instructions: Evaluate and Treat Discharge provider: Jayant Robertson MD Summary Hospital Course Discharge Diagnosis: 1/Recurrent stroke : Neuro deficits NIHSS at 2 , Left dorsiflexion is weak, with gait disturbance and continuing tingling sensation in LUE, in patient with h/o Right sided Ischemic Stroke with small petechial hge (Right Parietal occipital area), CT head 2/ Current Cig smoker: As above , pt understands hazardous effects on health sec to continuing to smoke. He shall make all efforts to quit the habit. He agrees to nicotine patch 3/HTN , has been taking his anti HTN meds at home. Initial BPs elevated. Repeat improved. Allow Permissive HTN / Keep SBP > 140 4/ HLD see above Continue Atorvastatin high dose 5/DM 2 not well controlled/ has Hyperglycemia BG 172, . Accu check AC/ HS . Reg Insulin per Sliding scale. Hol;d Metformin during Hospital stay Check Hb A1C 6/ Obesity class 2, BMI not at goal / Continue Life style modifications Hospital Course: The patient was admitted with new stroke symptoms involving his left leg, especially his foot. He would complete inability to move the foot at the ankle. This follows a stroke in 2022 that affected his face and arm. Imaging indicated that the patient had a new MCA distribution infarct more anterior to his chronic changes from his prior stroke. He also had an occlusion of his right internal carotid which appeared to be new from his last angiogram in 2022. He was discussed in detail with [facility] tele stroke with the phone number of [phone]. Recommendations were for 21 days of dual antiplatelet therapy following a Plavix load which he received here. He will be on baby aspirin for the 21 days, he was on full-dose aspirin at 3:25 a.m. daily chronically. Since this is considered a stroke that was breaking through his aspirin he will be switched to Plavix monotherapy following his 21 days of dual antiplatelet therapy. I discussed the imperative of smoking cessation with him he was currently on nicotine patches. He also has diabetes and hyperlipidemia. He will continue his high dose statin. TG 192 Chol 124 HDL 27 LDL 59 A1c 7.5 Status at Discharge Cognitive/behavioral status at discharge: at baseline, oriented Functional status at discharge: uses cane/walker Overall status at discharge: patient is not back to baseline Exam Vital Signs (past 8 hours): - 11/18/24 04:00 11/18/24 04:00 11/18/24 08:00 Temperature 97.1 F L 97.5 F L Pulse Rate 94 H 85 Respiratory Rate 18 18 Blood Pressure 161/98 H 136/78 Pulse Oximetry 97 98 95 Oxygen Delivery Method Room Air Oxygen Flow Rate 0 0 11/18/24 08:00 Temperature Pulse Rate Respiratory Rate Blood Pressure Pulse Oximetry 97 Oxygen Delivery Method Room Air Oxygen Flow Rate Oxygen Delivery Method Room Air Oxygen Flow Rate 0 Narrative Exam Narrative: NAD, alert and oriented. Fluent speech. Lungs are clear, normal rate and effort. Heart is regular, no murmur gallop or rub. Abdomen is soft, non distended. Extremities are free of edema. Neuro: Mild left facial droop which is chronic. Mild left arm weakness, which is chronic. New weakness at the left ankle, with inability to dorsi or plantar flex foot or move toes. Objective ECG Impression: Normal sinus rhythm Left axis deviation Pulmonary disease pattern Septal infarct , age undetermined Cannot rule out Inferior infarct , age undetermined Imaging Multiple studies:: Radiologist's impression: MRI brain: Brain: No intracranial bleeds or mass effects. There is cerebral volume loss for age. There are mild periventricular and deep white matter chronic small vessel ischemic changes. Brainstem appears normal. Again noted is a moderately large sized remote right MCA distribution infarct involving the right posterior parietal, posterior temporal, and occipital lobes with resultant encephalomalacia. There is associated hemosiderin deposition. Additionally, near the boundaries of the remote infarct, are multiple small areas of restricted water diffusion, including a focus in the paramidline high posterior right frontal lobe near the vertex, measuring 0.8 x 1.6 cm on axial diffusion image 21 of series 11. Additionally, on that same image, there is a thin rim of additional frontal cortical infarct. Additionally, there is punctate additional right posterior parietal cortical/subcortical infarct on axial diffusion image 17 of series 11. There is very subtle punctate infarct in the anterior body of the right caudate. These air is are associated with cytotoxic edema on the axial FLAIR sequence. No chronic ischemic insults. Normal intravascular flow voids are present. Skull and face: Calvarial bone marrow is normal in signal. Orbits are normal. Sinuses: Sinuses and mastoids are clear. IMPRESSION: 1. Moderately large old posterior right MCA distribution infarct with encephalomalacia. 2. Multiple small areas of acute infarct, also in the MCA distribution. CTA head and neck: HEAD CT ANGIOGRAPHY: Anterior circulation: There is a chronic short segment occlusion of the supraclinoid right internal carotid artery. The occlusion measures approximately 6 mm in length. This results in mildly hypo attenuated flow in the right middle cerebral artery branches. There is no right MCA occlusion or focal filling defect or other occlusion or focal filling defects seen other than the right supraclinoid carotid. The anterior communicating artery is seen. No aneurysms are seen. Posterior circulation: Dominant patent left vertebral artery. Right vertebral artery diffusely diminutive, normal variant. They join to form a normal caliber basilar artery. Flow within the posterior cerebral arteries is normal and symmetric. No aneurysms are seen. NECK CT ANGIOGRAPHY: Carotid system: The great vessels demonstrate a conventional anatomy as they arise from the aortic arch. The origins of the common carotid arteries appear patent. The common carotid arteries demonstrate normal caliber and courses. The bifurcation regions are both widely patent. The origin of the right internal carotid artery is normal in caliber. The right internal carotid more superiorly becomes somewhat diminutive. It occludes for short segment at the supraclinoid carotid, a chronic occlusion. The left internal carotid artery is widely patent. Posterior circulation: Dominant patent left vertebral artery. Right vertebral artery diffusely diminutive, normal variant. They join to form a normal caliber basilar artery. Soft tissues: Visualized neck soft tissues demonstrate no suspicious abnormalities. Bones: No suspicious bony lesions. Visualized cervical spine appears normally aligned. IMPRESSION: 1. 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 2. No acute focal filling defects or vascular cut offs intracranially. 3. Patent internal carotid artery origins. Right internal carotid artery in the neck is somewhat diminutive, leading up to the short segment supraclinoid carotid occlusion. Comment: Final report is concordant with preliminary interpretation provided by [facility]. A preliminary report was provided to the referring ER physician on 11/17/[address] brain: No acute intracranial pathology. Old moderate sized right-sided infarct. Labs 11/17/24 04:03 11/17/24 04:03 Labs: Laboratory Results - last 24 hr 11/17/24 04:03 Triglycerides 192 H Cholesterol 124 L LDL Cholesterol, Calc 59 HDL Cholesterol 27 L [facility] Social History household members: spouse and children Smoking Status: Current every day smoker alcohol intake: current Discharge Assessment & Plan Assessment and Plan Assessment: 1. Acute ischemic stroke with new left leg weakness, present on admission and active. 2. Tobacco dependence, present on admission and active. 3. Right internal carotid occlusion which appears to be new since 2022, active. Chronic medical issues include diabetes mellitus, hyperlipidemia,obesity class 2, and hypertension. Discharge Plan Discharge Plan Patient Disposition: Xfer Inpatient Rehab Other facility: [facility] Provider Discharge Comment: Stable for transfer to inpatient rehab. Discharge orders & Medications Discharge Orders: Discharge (Order); Ordered 02/07/25 Ordered By: Jayant Robertson Prescriptions: New nicotine 14 mg/24 hr Patch 24 Hour 14 mg topical DAILY Qty: 30 0RF clopidogrel 75 mg Tablet 75 mg PO DAILY Qty: 30 0RF aspirin 81 mg Tablet,Delayed Release (Dr/Ec) 81 mg PO DAILY Qty: 21 0RF Continued amlodipine 10 mg tablet 10 mg PO DAILY valsartan 160 mg tablet 160 mg PO DAILY atorvastatin 80 mg tablet 80 mg PO BEDTIME Qty: 90 0RF metformin 500 mg tablet 500 mg PO BIDWMEAL Qty: 60 0RF tamsulosin 0.4 mg capsule 0.8 mg PO DAILY Rx Instructions: new dose change (Take two tablets) Discontinued aspirin 325 mg Tablet,Delayed Release (Dr/Ec) 325 mg PO DAILY Qty: 90 0RF Follow up/Referrals: Néstor Redd MD [Primary Care Provider] - Discharge Health Status Multidrug resistant organism: No MDRO Diet/Activity/Treatments Diet: Carb-consistent/Diabetic Liquid consistency: Normal/Thin Food texture: Regular Activity: Per PT and OT Discharge Data Primary Care Provider: Néstor Redd
[2024-11-18 12:00] VITALS: BP 165/97; PULSE 84; RESP 16; TEMP 36.6; O2SAT 97; O2SAT 98
--- NOTE | 2024-11-18 14:45 | CM.DPNOTE ---
DC Note Insurance auth received according to Lydia at [facility], patient can admit today after 1300. Met w/patient and sp to review and both agreeable to plan, spouse to transport. DC Summary, med list, RN and CM notes all sent to Lydia at [facility]. Bedside RN updated with plan. plan: Discharge to [facility] via spouse to transport. PRERNA
== END 2024-11-18 13:27 | DRG 66 ==
LOC: ED 05:59 → AC 07:36
PROVIDERS: Admitting Provider Hospitalist; Emergency Provider Student in an Organized Health Care Education/Training Program; PCP Family Medicine; Referring Provider Student in an Organized Health Care Education/Training Program; Visit Provider Hospitalist
DX: I63.231 Cerebral infarction due to unspecified occlusion or stenosis of right carotid arteries (principal); I10 Essential (primary) hypertension; R29.702 NIHSS score 2; E78.5 Hyperlipidemia, unspecified; E11.65 Type 2 diabetes mellitus with hyperglycemia; E66.812 Obesity, class 2; R20.2 Paresthesia of skin; R26.9 Unspecified abnormalities of gait and mobility; I69.334 Monoplegia of upper limb following cerebral infarction affecting left non-dominant side; I69.398 Other sequelae of cerebral infarction; G83.14 Monoplegia of lower limb affecting left nondominant side; M21.372 Foot drop, left foot; R29.701 NIHSS score 1; F17.210 Nicotine dependence, cigarettes, uncomplicated; Z79.84 Long term (current) use of oral hypoglycemic drugs; Z68.38 Body mass index [BMI] 38.0-38.9, adult
CPT/HCPCS: 36415; 70450; 70496; 70498; 70551; 71045; 80053; 80061; 80305; 80320; 81001; 82550; 82962; 84484; 85025; 85610; 85730; 87635; 93005; 97116; 97129; 97162; 97166; 97530; 97535; 99284; 99285; 99406; J1815; Q9967